=== PATIENT | female | born 1965 | race Caucasian/White ===

== ENCOUNTER 2017-03-05 03:11 | Inpatient (IN) | payer BC, SELFPAY ==
[2017-03-05] MEDS ORDERED: Acetaminophen 1,000 MG in Premix Bag 1 BAG IVPB SCH (05:00)
[2017-03-05 05:22] LABS: Oxyhemoglobin 96.7 % (94.0-97.0); Sodium 139 mmol/L (135-148)
[2017-03-05 05:24] LABS: Modified Allen's Test POSITIVE
[2017-03-05 05:41] LABS: Troponin I 0.011 ng/mL (< 0.028)
--- NOTE | 2017-03-05 06:14 | PDOC.EVN ---
Event Note - Event Note Event Note: [id number] 1. Pneumonia 2. Sepsis 3. Acute respiratory failure 4. S/P lap juvenal plan: see orders
[2017-03-05] MEDS ORDERED: Acetaminophen 325 MG TAB PO PRN (06:25)
[2017-03-05] MEDS ORDERED: Vancomycin HCl 1.5 GM in Sodium Chloride 0.9% 250 ML 300 ML IVPB SCH ×2 (06:30→07:45)
[2017-03-05 06:38] LABS: PTT 31.8 SEC (22.9-36.1); Prothrombin Time 15.5 SEC (12.0-14.7)
[2017-03-05 06:39] LABS: Lactic Acid - Sepsis 2.5 mmol/L (0.5-2.2)
[2017-03-05 06:46] LABS: ALT (SGPT) 103 U/L (8-55); AST (SGOT) 58 U/L (5-34); Alkaline Phosphatase 76 U/L (40-150); Anion Gap 13 mmol/L (10-20); BUN (Urea Nitrogen) 11 mg/dL (7.0-18.7); CK (CPK) 84 U/L (29-168); Calc. Creatinine Clearance 0 mL/min (70-130); Calcium 8.1 mg/dL (7.8-10.44); Carbon Dioxide 18 mmol/L (22-29); Chloride 111 mmol/L (98-107); Estimated GFR-MDRD 89; Globulin 2.7 g/dL (2.4-3.5); Protein, Total 6.1 g/dL (6.0-8.3)
[2017-03-05 06:50] LABS: #Basophils 0.1 thou/uL (0.0-0.2); #Lymphocytes 0.9 thou/uL (1.20-3.40); #Monocytes 0.6 thou/uL (0.11-0.59); #Neutrophils 10.8 thou/uL (1.40-6.50); %Basophils 0.4 % (0.0-1.0); %Lymphocytes 7.2 % (21.0-51.0); Hematocrit 41.2 % (36.0-47.0); Mean Platelet Volume 7.9 fL (7.4-10.4); Red Blood Cell (RBC) Count 4.13 mill/uL (4.20-5.40); White Blood Cell (WBC) Count 12.3 thou/uL (4.8-10.8)
[2017-03-05] MEDS: Sodium Chloride 0.9% 1,000 ML IV SCH ×2 (07:00→19:45)
[2017-03-05 08:30] LABS: Troponin I 0.015 ng/mL (< 0.028)
[2017-03-05] MEDS ORDERED: Cefepime 2 GM in Sodium Chloride 0.9% 100 ML IVPB SCH (09:00)
--- NOTE | 2017-03-05 09:07 | RAD ---
PORTABLE AP CHEST XRAY: DATE: 03/05/17. HISTORY: Dyspnea. Hypotensive. FINDINGS: There are parenchymal changes at each lung base probably related to atelectasis. This exam was also obtained in a shallow depth of inspiration. There is a questionable small pleural effusion, but this may be related to atelectasis and overlying soft tissue density. Cardiac silhouette and bronchovasc ular markings are accentuated by the shallow depth of inspiration. Osseous structures are intact. IMPRESSION: There is a shallow depth of inspiration limiting evaluation, but there is bibasilar atelectasis with a questionable tiny left pleural effusion. POS: OFF
[2017-03-05 09:08] LABS: LegU Control Bar Appear? YES (CONTROL BAR); LegionellaU Control Bkground? CLEAR/WHITE (CLR/WHITE); Strp pneuU Control Background? CLEAR/WHITE (CLR/WHITE); Strp pneumo Control Bar Appear YES (CONTROL BAR)
[2017-03-05] MEDS: Heparin 5,000 UNITS/ML VIAL SC SCH ×3 (09:52→21:26)
[2017-03-05] MEDS: Cefepime 2 GM, Syringe 2.5 ML in Sterile Water 10 ML SLOW IVP SCH ×2 (09:52→17:55)
--- NOTE | 2017-03-05 10:00 | HP ---
DATE OF ADMISSION: 03/05/2017 CHIEF COMPLAINT: Cough. HISTORY OF PRESENT ILLNESS: The patient is 51 years old female with past medical history of hypothyroidism, migraine disorder, posttraumatic stress disorder, now came here complaining of dyspnea. According to the patient, she had a laparoscopic cholecystectomy done in [place] as an outpatient and was discharged home. Last night around 8:00, upon arrival to the home, the patient started having abdominal pain. Abdominal pain was in the lower abdomen. The patient c/o cough associated with some sputum production. Had numerous episodes of vomiting. So, the patient went to outside ER and patient is transferred here. Patient was also found to be hypoxic, so the patient was placed on BiPAP in the outside ER. The patient complains of fatigue. Denies any chest pain. Denies any palpation. Denies any dizziness. Denies any headache. Denies any diarrhea, but complaints of dyspnea. PAST MEDICAL HISTORY: As per HPI. PAST SURGICAL HISTORY: Right shoulder surgery, back surgery, knee surgery. SOCIAL HISTORY: Denies smoking, denies alcohol, denies any drugs. FAMILY HISTORY: Positive for heart problems. MEDICATIONS: Reviewed. ALLERGIES: EGGS and SULFA. REVIEW OF SYSTEMS: Constitutional: Positive for fever and chills. Eyes: No vision problems. Ears: Denies any hearing loss. Neck: Denies any neck pain. Cardiovascular System: Denies any chest pain and denies any palpitations. Respiratory System: Positive for dyspnea. Positive for cough. Musculoskeletal : Denies any joint deformities. Cranial Nerve System: Denies syncope. Psychiatric System: Denies anxiety. Integumentary: Denies any rash. Gastrointestinal: Positive for abdominal pain. Positive for nausea, vomiting. Genitourinary: Denies any dysuria. All other review of systems are reviewed and are negative. PHYSICAL EXAMINATION: CONSTITUTIONAL/VITAL SIGNS: At the time of H and P performed, heart rate of 130s, blood pressure is 101/60, positive for fever in the outside ER, respiratory rate is 20. GENERAL: The patient appears tired. HEENT: Anterior nares patent. Face, positive for BiPAP mask. NECK: Supple, no JVD. CARDIOVASCULAR SYSTEM: S1, S2 present, tachycardic. No murmurs, no rubs, no gallops. RESPIRATORY SYSTEM: Diminished breath sounds. Positive for crackles. Positive for rhonchi. Positive for mild tachypnea. Positive for BiPAP. GASTROINTESTINAL: Abdominal surgical site appears clean, nontender to palpate, distended, no guarding, no organomegaly. CRANIAL NERVES SYSTEM: Awake, follows commands. Speech clear. PSYCHIATRIC: Mood appropriate at this time. LABORATORY DATA: Labs at the time of H and P performed that was done in the outside ER, BMP showed sodium 130, potassium 3.4, chloride 103, CO2 of 21, BUN 9 , creatinine 0.84. ABG showed pH of 7.36, pCO2 is 31, bicarbonate is 17.3. CT chest, abdomen, and pelvis done in the outside ER, no acute disease. Positive for laparoscopic cholecystectomy. CT chest, no evidence of PE. Positive for right lower lobe infiltrate and left lobe pneumonia. ASSESSMENT AND PLAN: The patient is a 51 years old female. 1. Sepsis secondary to pneumonia. Plan to start the patient on broad-spectrum antibiotics. Plan to admit the patient to ICU for close monitoring. We will monitor the patient closely. 2. Acute hypoxic respiratory failure. Continue BiPAP. We will monitor respiratory status. We will consult Pulmonary to evaluate the patient. 3. Pneumonia. Continue IV antibiotics. Plan to check Legionella, Streptococcus pneumonia, urinary antigen. Plan to check flu test also. We will follow the patient. 4. Status post laparoscopic cholecystectomy. We will go ahead and consult general surgery to evaluate the patient. We will monitor the patient closely. 5. Metabolic acidosis. We will monitor bicarbonate level closely. Plan to check serum lactate levels. 6. History of hypothyroidism. Continue home medications. 7. Pain, p.r.n. pain medications. The case was discussed in detail with the patient. SABRINA
[2017-03-05] MEDS: Vancomycin HCl 1.5 GM in Sodium Chloride 0.9% 250 ML 300 ML IVPB SCH ×2 (11:22→23:57)
[2017-03-05] MEDS: Morphine 4 MG/ML VIAL SLOW IVP PRN ×4 (11:22→19:48)
[2017-03-05 11:51] LABS: Troponin I 0.014 ng/mL (< 0.028)
[2017-03-05 13:20] LABS: Troponin I 0.012 ng/mL (< 0.028)
--- NOTE | 2017-03-05 14:02 | CON ---
DATE OF CONSULTATION: 03/05/2017 REQUESTING PHYSICIAN: Dr. Valle HISTORY OF PRESENT ILLNESS: This is a 51-year-old woman who is postoperative day #2, status post lap aroscopic cholecystectomy in [place]. The patient presented to a hospital in [place] last night co mplaining of shortness of breath associated with pleuritic chest pain. Following workup, the patient was transferred to [facility] in [place], [place]. At the time of my evaluation, the patient is awake and alert. She is on BiPAP to maintain adequate o xygenation. I have been asked to evaluate the patient to rule out any post-surgical complications. The patient d enies any nausea or vomiting. She reports right upper quadrant abdominal pain which she describes as spasm. She denies any fevers or chills. PAST MEDICAL HISTORY: Pertinent for hypothyroidism, post-traumatic stress disorder and chronic migra ine. Type 2 diabetes mellitus and reactive airway disease. SURGICAL HISTORY: Pertinent for laparoscopic cholecystectomy of which the patient is postoperative d ay #2. She is also status post right shoulder arthroplasty, she has had a right knee arthroplasty as well as back surgery. She does not recall what levels. SOCIAL HISTORY: She denies any cigarette smoking, ethanol or illicit drug abuse. PREHOSPITAL MEDICATIONS: Include acetaminophen with codeine 300/30 one p.o. q.6 hours p.r.n., amitri ptyline 10 mg p.o. daily, hydrochlorothiazide 12.5 mg p.o. daily, metformin 500 mg p.o. b.i.d., omepr azole 40 mg p.o. daily, Minipress 1 mg p.o. at bedtime, sertraline 100 mg p.o. daily, simvastatin 20 mg p.o. at bedtime, potassium chloride 20 mEq p.o. daily. She also takes Flovent Diskus 50 mcg inhal ation p.r.n. ALLERGIES: SULFA DRUGS. REVIEW OF SYSTEMS: Ten point review of systems essentially unremarkable except for as stated in past medical history and chief complaint. PHYSICAL EXAMINATION: GENERAL: This reveals a 51-year-old normally developed woman who is otherwise coherent and interacti ve and appears stated age. The patient is alert and oriented x3, appears to be in moderate acute dis tress secondary to right upper quadrant abdominal pain. VITAL SIGNS: Includes blood pressure 102/63, pulse 119, respiratory rate is 26, temperature is 97.7 degrees Fahrenheit, oxygen saturation 100% on BiPAP. HEENT: Reveals normocephalic and atraumatic. Pupils are equal, round, and reactive to light and acc ommodation. She has no sclerae icterus present. HEART: Reveals regular rate with sinus tachycardia. No murmurs or gallops auscultated. LUNGS: Reveals scattered rhonchi. Breathing is tachypneic, but unlabored. ABDOMEN: Soft and obese. She has moderate incisional tenderness to palpation with no gross rebound tenderness present. All surgical incisions remain intact, clean, and dry. NEUROLOGIC: Reveals no focal deficits present. PERTINENT LABORATORY DATA: Includes CBC with 12,300 white blood cells, hemoglobin 13.6, hematocrit i s 41.2, platelet count is 303,000. Metabolic profile: Sodium 138, potassium 3.6, chloride is 111, bicarbonate is 18, BUN 11, creatinine 0.70, glucose 118, lactic acid is elevated at 2.5. Total bilirubin is elevated at 2.0. AST and ALT are both elevated at 58 and 103 respectively. Alkaline phosphatase is normal at 76. I have personally reviewed the CT scan of the chest from [place] which is remarkable for bilateral pu lmonary consolidative opacifications, no evidence of pulmonary embolism. CT scan of the abdomen and pelvis obtained there as well reveals a small free fluid within the gallbl adder fossa as well as moderate sized free fluid above the liver. There is a small amount of free fl uid in the pelvis. There is residual small pneumoperitoneum. IMPRESSION: 1. Postoperative day #2, status post laparoscopic cholecystectomy. 2. Free intraperitoneal fluid, rule out biliary leak. 3. Acute pulmonary insufficiency, likely secondary to atelectases versus pneumonia. RECOMMENDATIONS: At this time includes a HIDA scan to rule out common bile duct stone versus bile le ak as the etiology of the transaminitis. We will consider Gastroenterology consultation if indicated by the HIDA scan for both diagnostic and therapeutic purposes. There is no acute surgical indication for this patient at this time; however, will continue to follow this patient's course with you and make further recommendations as necessary. Thank you again, Dr. Valle for allowing me the opportunity to participate in the care of this mariusz ent.
[2017-03-05] MEDS ORDERED: Fentanyl 100 MCG/2 ML VIAL ONE ×2 (14:20→17:50)
--- NOTE | 2017-03-05 14:44 | CON ---
CARDIOLOGY CONSULTATION NOTE DATE OF CONSULTATION: 03/05/2017 REASON FOR CONSULTATION: Shortness of breath and sinus tachycardia. HISTORY OF PRESENT ILLNESS: Ms. Blanco is a 51-year-old woman. The patient underwent a resection of her gallbladder in [place] on Thursday. Patient states in retrospect, she thinks she is having a l ittle bit of trouble breathing even right after the procedure. She said her breathing worsened and f inally she was brought to the Emergency Department where she is very short of breath and placed on Bi PAP. The patient has a history of hypothyroidism. No previous cardiac history. As mentioned, she had a l aparoscopic cholecystectomy in [place] as an outpatient. The patient was having abdominal pain las t night and then began having trouble breathing. She was found to be hypoxic here. Here, her oxygen levels are normal, now on BiPAP. PAST MEDICAL HISTORY: Negative for cardiac problems. PAST SURGICAL HISTORY: As outlined above. SOCIAL HISTORY: No smoking or alcohol. FAMILY HISTORY: Positive for heart disease. MEDICATIONS: Topiramate, pantoprazole, prazosin, hydrochlorothiazide, simvastatin and Imitrex p.r.n. ALLERGIES: SULFA. REVIEW OF SYSTEMS: Not really obtainable. Currently, she is on BiPAP. She can only speak in short sentences. Reading the review of systems from the initial note: Constitutional: Positive for fever and chills. Vision: No changes. Hearing: No changes. Pulmonary: No cough or wheezing. Positiv e shortness of breath. Cardiac: No chest pain. Gastrointestinal: Positive for abdominal pain. Sk in: No rashes. Neurologic: No unilateral weakness or numbness. Psychiatric: She has some history of anxiety. PHYSICAL EXAMINATION: GENERAL: A somewhat ill-appearing middle-aged woman in no distress. VITAL SIGNS: Blood pressure is 123/71, pulse is 128 and sinus tachycardia. EYES: Sclerae nonicteric. MOUTH: Mucous membranes are moist. NECK: Supple. No lymphadenopathy. LUNGS: Clear. No wheezing, rales or rhonchi. CARDIOVASCULAR: She is tachycardic. No murmur, rub or gallop. ABDOMEN: Obese and nontender to very light palpation, but she said she is tender to more deep palpat ion. EXTREMITIES: Warm and dry. No clubbing, cyanosis or edema. IMAGING DATA: EKG: Sinus tachycardia, otherwise normal. Echocardiogram showed normal left ventricu lar function and normal echocardiogram other than the tachycardia. PERTINENT LABORATORY DATA: Troponins peak 0.051. BNP does not appear to have been drawn. Lactic acid 3.5. ASSESSMENT: 1. Shortness of breath of unknown etiology. 2. Recent abdominal surgery. 3. Normal left ventricular function. PLAN: 1. We will go ahead and draw BNP in the morning. 2. Further evaluation is being done concerning her intraabdominal status. 3. Antibiotics being given. 4. No other recommendations from a cardiac standpoint. ADDENDUM: The patient did have a CT pulmonary angiogram done at the transferring hospital. There wa s no evidence of any pulmonary emboli.
[2017-03-05] MEDS ORDERED: Fentanyl 100 MCG/2 ML VIAL SLOW IVP PRN (15:30)
[2017-03-05] MEDS ORDERED: Succinylcholine Chloride 20 MG/ML 10 ml SYRINGE FS ONE (15:59)
[2017-03-05] MEDS ORDERED: Lidocaine 1% PF 5 ML VIAL ONE (15:59)
[2017-03-05] MEDS ORDERED: Propofol 200 MG/20 ML VIAL ONE (15:59)
--- NOTE | 2017-03-05 17:07 | NM ---
HIDA SCAN: Date: 03/05/17 Patient was given 5.5 mCi of technetium labeled mebrofenin IV. HISTORY: Post laparoscopic cholecystectomy. Assess for biliary leak. FINDINGS: Initial images show normal liver activity. Bile ducts begin to visualize by 15 minutes. Intestinal ac tivity is documented. Beginning at approximately 16 minutes, there is accumulation of activity in the region of the gallbla dder fossa, which intensifies with time. This is consistent with biliary leak at the gallbladder rhoda a. IMPRESSION: HIDA scan is positive for biliary leak with activity accumulating in the region of the gallbladder fo ssa. POS: [facility]
[2017-03-05] MEDS ORDERED: Iothalamate Meglumine 60% 50 ML VIAL FS ONE ×2 (17:32→18:37)
[2017-03-05] MEDS ORDERED: Midazolam HCl 2 mg/2 ml Vial ONE ×2 (17:50→18:54)
[2017-03-05] MEDS ORDERED: Indomethacin 50 MG SUPP ONE (18:39)
--- NOTE | 2017-03-05 19:40 | RAD ---
ERCP: History: Biliary leak. Comparison: HIDA scan, same day. FINDINGS: Only a single image of the examination was submitted. The intrahepatic and extrahepatic biliary syste m is visualized. No definite leak on this single view. IMPRESSION: No definite leak on this single images although limited as only a single image submitted and not the entirety of the examination. POS: [facility]
--- NOTE | 2017-03-05 20:38 | OP ---
PREOPERATIVE DIAGNOSIS: Bile leak. PROCEDURE: After informed consent was obtained, the patient was placed in the left lateral decubitus position and anesthesia was administered per the Anesthesia Department. Side-viewing endoscope was inserted into the esophagus under direct visualization with ease and passed to the second portion of the duodenum with ease. No mucosal abnormalities were noted. A tapered-tip cannula was inserted int o the common bile duct. Cholangiogram revealed no leak. No obvious filling defects. A sphincteroto my was performed and a 9 cm 10-Serbian stent was placed without difficulty. ASSESSMENT: 1. Bile leak. 2. Status post sphincterotomy and stent placement. RECOMMENDATIONS: 1. Repeat LFTs in a.m. 2. Removal of stent in 6-8 weeks.
[2017-03-05] MEDS ORDERED: Sedation Protocol FS SCH (20:45)
[2017-03-05] MEDS ORDERED: Lacri-Lube Opth Oint 3.5 GM TUBE EA EYE PRN (20:45)
[2017-03-05] MEDS ORDERED: DISCONTINUE PREVIOUS NARCOTIC PAIN MEDICATIONS AND BENZODIAZEPINES FS SCH (20:50)
[2017-03-05] MEDS ORDERED: Propofol 1,000 MG/100 ML VIAL IV PRN (20:50)
[2017-03-05] MEDS ORDERED: Fentanyl 20 MCG/ML 250 ML IVPB SCH (20:50)
[2017-03-05] MEDS ORDERED: Morphine 4 MG/ML VIAL SLOW IVP PRN (21:00)
[2017-03-05] MEDS: Lorazepam 2 MG/ML VIAL SLOW IVP PRN ×2 (21:13→23:47)
[2017-03-05] MEDS: metroNIDAZOLE 500 MG in Premix Bag 1 BAG IVPB SCH (21:13)
[2017-03-05] MEDS: Sodium Chloride 0.45% 1,000 ML IV SCH (21:30)
--- NOTE | 2017-03-05 23:22 | CON ---
DATE OF CONSULTATION: 03/05/2017 HISTORY OF PRESENT ILLNESS: The patient is a 51-year-old female who was in her normal stat e of health until she underwent a cholecystectomy in [place]. This was performed as an outpatient. She was discharged home. She soon thereafter had some abdominal pain, began to cough and then had some nausea and vomiting. She was sent to the ER and was hypoxic and placed on BiPAP. She reports i t hurts when she breathes. PAST SURGICAL HISTORY: Includes right shoulder surgery, back surgery, and knee surgery. PAST MEDICAL HISTORY: Includes hypothyroidism. MEDICATIONS: Include topiramate, pantoprazole, prazosin, hydrochlorothiazide, simvastatin, and Imitr ex. ALLERGIES: SULFA. SOCIAL HISTORY: She does not smoke or drink. FAMILY HISTORY: Negative for GI or liver disease. REVIEW OF SYSTEMS: Unobtainable as she is on BiPAP. PHYSICAL EXAMINATION: GENERAL: Shows an ill-appearing middle-aged woman, obese with some respiratory distress on BiPAP. VITAL SIGNS: Temperature is 97.8, pulse 119, blood pressure 107/62, respiratory rate 23. HEENT: Unremarkable. NECK: Supple. CHEST: Clear. CARDIOVASCULAR: Regular rate and rhythm. ABDOMEN: Diffusely tender without rebound or guarding. She has recent scars from her cholecystectom y. RECTAL: Deferred. EXTREMITIES: Normal. NEUROLOGIC: Nonfocal. LABORATORY DATA: Shows a white blood cell count of 12.3, hemoglobin 13.6. PT is 13.5 with an INR of 1.2. Chemistries are significant for a total bilirubin of 2.0, AST of 58, ALT of 103, lactic acid 2 .5, repeat was 3.5, CO2 is 18. HIDA scan was performed and showed changes consistent with a bile rita k. ASSESSMENT: 1. Bile leak. 2. Abnormal liver function tests. 3. Respiratory failure. RECOMMENDATIONS: ERCP with sphincterotomy and stent placement - risk and potential complications wer e discussed with the patient.
--- NOTE | 2017-03-06 00:15 | CON ---
DATE OF SERVICE: 03/05/2017 SERVICE: Pulmonary Medicine. REASON FOR CONSULTATION: Respiratory failure and ICU patient. HISTORY OF PRESENT ILLNESS: The patient is a 51-year-old white female with past medical history sign ificant for a recent cholecystectomy in [place]. This was in the outpatient setting. She was subs equently discharged home. At 8:00, she started having increasing abdominal discomfort and pain. She had cough and several episodes of vomiting. She presented to the outside Emergency Department where she was subsequently brought here. She was found to be a little bit hypoxemic. She was placed on B iPAP and tucked into the ICU. She denies any current fevers, diarrhea, chest discomfort, or signific ant sputum production. PAST MEDICAL HISTORY: 1. Hypothyroidism. 2. Migraine headache. 3. Posttraumatic stress disorder. PAST SURGICAL HISTORY: 1. Right shoulder surgery. 2. Back surgery. 3. Knee surgery. 4. Cholecystectomy. SOCIAL HISTORY: Negative for alcohol, tobacco, or illicit drug use. She denies any exposure to chem icals, dust asbestos, or tuberculosis. FAMILY HISTORY: Noncontributory. ALLERGIES: EGGS, SULFA. MEDICATIONS: List of her inpatient medications were reviewed. No updates were made at this time. REVIEW OF SYSTEMS: General, head, ears, eyes, nose, throat, cardiovascular, respiratory, GI, , mus culoskeletal, neurologic and skin is negative except as mentioned in the HPI. PHYSICAL EXAMINATION: VITAL SIGNS: Afebrile, pulse 128, blood pressure 111/62, respirations 33, saturation 99% on 27% FiO2 . GENERAL: Patient is awake. On BiPAP, she is tachypneic, but indicates she is breathing comfortable. She does not look toxic at this time. HEENT: Normocephalic, atraumatic. Sclerae are white, conjunctivae pink. Oral mucosa is moist witho ut lesions. LUNGS: Decent air entry. I do not appreciate a prolonged expiratory phase or wheezing. Rhonchi adalid ared with cough. HEART: Tachycardic. Regular. ABDOMEN: Distended. Bowel sounds are hypoactive. She is exquisitely tender in the right upper quad rant. She does have a little bit of rebound there, without guarding. MUSCULOSKELETAL: No cyanosis or clubbing. There is no pitting in the bilateral lower extremities. NEUROLOGIC: Grossly nonfocal. LABORATORY DATA: WBC 12.3, hemoglobin 13.6, platelets 303,000. INR 1.2. PH 7.36, pCO2 of 31, pO2 o f 138 on BiPAP at 12/5. Lactate is trending upward at 3.5. Cardiac enzymes are negative x3. AST an d ALT are 58 and 103. Basic metabolic profile, liver function studies are otherwise unremarkable. S trep and legionella urine antigens are negative. IMAGIN. Chest x-ray demonstrates bilateral atelectasis of the bibasilar region. Possible left-sided pleu ral effusion is evident. There seems to be some fluid in the fissure. Lung volumes were extraordina rily small. There is air in the colon, but no obvious free air is present. 2. Echocardiogram demonstrates 60% to 65% ejection fraction. Enlarged right ventricle. 3. Grade I diastolic dysfunction. 4. HIDA scan demonstrates a biliary leak with contrast accumulating in the region of the gallbladder fossa. ASSESSMENT: 1. Acute hypoxic respiratory failure secondary to atelectasis in the bilateral lower lobes. 2. Severe sepsis secondary to peritonitis from a biliary leak. 3. Recent cholecystectomy. PLAN: The patient is going down for ERCP and possible stent placement today. We will be putting on mechanical ventilation for this procedure. Empiric antibiotics directed at GI pathology will be cont inued. Otherwise, supportive care will be continued. Until this occurs, we will attempt to give her some BiPAP break as tolerated. CRITICAL CARE TIME: 30 minutes.
[2017-03-06] MEDS ORDERED: Sodium Chloride 0.9% 1,000 ML IV SCH (03:00)
[2017-03-06 04:01] LABS: Anion Gap 9 mmol/L (10-20); BUN (Urea Nitrogen) 21 mg/dL (7.0-18.7); Calc. Creatinine Clearance 141 mL/min (70-130); Calcium 7.6 mg/dL (7.8-10.44); Carbon Dioxide 20 mmol/L (22-29); Chloride 112 mmol/L (98-107); Estimated GFR-MDRD 80
[2017-03-06 04:03] LABS: ALT (SGPT) 52 U/L (8-55); AST (SGOT) 24 U/L (5-34); Alkaline Phosphatase 48 U/L (40-150); Bilirubin, Direct 0.9 mg/dL (0.1-0.3); Bilirubin, Total 1.3 mg/dL (0.2-1.2); Protein, Total 4.6 g/dL (6.0-8.3)
[2017-03-06 04:18] LABS: Band 38 % (5-11); Hematocrit 32.4 % (36.0-47.0); Mean Platelet Volume 7.6 fL (7.4-10.4); Neutrophil 54 % (42-75); White Blood Cell (WBC) Count 15.7 thou/uL (4.8-10.8)
[2017-03-06] MEDS ORDERED: Norepinephrine 8 MG/0.9% NS 250 ML ONE (05:11)
[2017-03-06] MEDS ORDERED: Norepinephrine 8 MG/250 ML BAG IVPB PRN (05:13)
[2017-03-06] MEDS: metroNIDAZOLE 500 MG in Premix Bag 1 BAG IVPB SCH ×3 (05:20→21:23)
--- NOTE | 2017-03-06 09:05 | RAD ---
PORTABLE UPRIGHT FRONTAL CHEST RADIOGRAPH: Date: 03/06/17 COMPARISON: 03/05/17. HISTORY: Recent laparoscopic cholecystectomy. FINDINGS: Nasogastric tube and endotracheal tube in proper position. No pneumothorax. There is increased densit y in both lung bases obscuring bilateral hemidiaphragms, left greater than right, suggesting a combin ation of pleural fluid and nonspecific air space disease/volume loss. IMPRESSION: Bibasilar pleural and parenchymal opacity, nonspecific, left greater than right. Endotracheal tube an d nasogastric tube in proper position. POS: OFF
[2017-03-06] MEDS: Sodium Chloride 0.45% 1,000 ML IV SCH ×3 (09:14→22:11)
[2017-03-06] MEDS: Heparin 5,000 UNITS/ML VIAL SC SCH ×3 (09:14→21:22)
[2017-03-06] MEDS: Cefepime 2 GM, Syringe 2.5 ML in Sterile Water 10 ML SLOW IVP SCH ×2 (09:14→19:14)
--- NOTE | 2017-03-06 11:45 | PRG ---
DATE OF SERVICE: 03/06/2017 SUBJECTIVE: Ms. Blanco is awake and sleepy this morning post-extubation. She is postoperative day # 3 status post laparoscopic cholecystectomy. She presented with respiratory difficulty. Workup was c onsistent with a bile leak as noted on the HIDA scan. The patient underwent ERCP with sphincterotomy and stent placement yesterday. Currently, she reports 6/10 abdominal pain. She denies any nausea. OBJECTIVE: VITAL SIGNS: Includes blood pressure 99/65, pulse is 120, respiratory rate is 28. Maximum temperatu re in the last 24 hours is 98.2 degrees Fahrenheit. HEENT: Reveals normocephalic and atraumatic. She has no scleral icterus present. HEART: Reveals regular rate with sinus tachycardia. No murmurs or gallops auscultated. CHEST: Lungs are clear to auscultation bilaterally. Breathing is regular and unlabored. ABDOMEN: Soft and obese with some mild tenderness to palpation which is incisional. She has no berta s rebound tenderness present. Liver and spleen are nonpalpable below costal margins. NEUROLOGIC: Reveals no focal deficits present. LABORATORY FINDINGS: Includes a CBC with 15,700 white blood cells, hemoglobin 10.4, hematocrit is 32 .4, platelet count is 236,000. Differential counts as follows, 54% segmented neutrophils, 38 bands, 6 lymphocytes, 1 monocyte and 1 eosinophil. Metabolic profile: Sodium is 137, potassium 3.9, chloride is 112, bicarbonate 20, BUN 21, creatinine 0.77, glucose is 97. Lactic acid is 2.9, down from 3.5 yesterday. AST and ALT are now normal at 24 and 52 respectively. Total bilirubin is improved to 1.3. IMPRESSION: 1. Postop day #2, status post endoscopic retrograde cholangiopancreatography with stent placement. 2. Postoperative day 3, status post laparoscopic cholecystectomy. 3. Acute pulmonary insufficiency, resolving. 4. Bile peritonitis, stable. PLAN: Continue with broad spectrum antibiotic therapy. There remains no surgical indication for thi s patient at this time.
[2017-03-06] MEDS: Vancomycin HCl 1.5 GM in Sodium Chloride 0.9% 250 ML 300 ML IVPB SCH (11:51)
[2017-03-06] MEDS: Acetaminophen 1,000 MG in Premix Bag 1 BAG IVPB SCH ×3 (11:51→23:07)
--- NOTE | 2017-03-06 13:31 | PRG ---
DATE OF SERVICE: 03/06/2017 SUBJECTIVE: The patient is doing better today. She seems to be breathing and having less abdominal pain. OBJECTIVE: VITAL SIGNS: Pulse is 118, respiratory rate is 34, blood pressure 137/81, temperature is 98.7. CHEST: Clear. CARDIOVASCULAR: Regular rate and rhythm. ABDOMEN: Soft. Diffusely tender without rebound or guarding. LABORATORY DATA: Shows a white blood cell count of 15.7, hemoglobin 10.4, hematocrit 32.4, MCV is 10 1.0. She has 38% bands. Chemistries significant for total bilirubin of 1.3. AST and ALT are normal . ASSESSMENT: 1. Bile leak -- improved. 2. Abnormal liver function tests -- improved. 3. Respiratory failure -- improved. RECOMMENDATIONS: 1. Continue antibiotics. 2. We will continue to follow.
[2017-03-06] MEDS: Pantoprazole 40 MG VIAL IVP SCH (14:32)
[2017-03-06] MEDS: traMADol HCl 50 MG TAB PO PRN ×3 (15:14→22:09)
--- NOTE | 2017-03-06 20:20 | PRG ---
DATE OF SERVICE: 03/06/2017 HISTORY OF PRESENT ILLNESS: This patient is status post ERCP, is comfortable, has been extubated tod ay in the morning, stent placement is satisfactory. Patient was just seen by Dr. Brown, who said taya t the patient can have ice chips and p.o. medications and will be monitored for signs of bowel activi ty and will be advanced on her diet. Patient otherwise is doing well. Pain control is good. She is awake, alert, and answering all questions appropriately. Pain control is appropriate. PHYSICAL EXAMINATION: VITAL SIGNS: Patient's blood pressure is 136/98, pulse is 128, temperature afebrile, and breathing c omfortably on room air. GENERAL: Patient is lying in bed, in mild distress because of abdominal pain. HEENT: Atraumatic, normocephalic. Pupils equally round, reactive to light. Extraocular movements i ntact. Mucous membranes moist. NECK: No JVD. CHEST: Some decreased air entry at the bases, otherwise good air entry at the upper lobes. HEART: S1, S2 normal, some tachycardia. ABDOMEN: Distended, bowel sounds are hypoactive, some tenderness. MUSCULOSKELETAL: Moves all 4 extremities. There is no pitting edema in the bilateral lower extremit ies. NEUROLOGIC: No cranial deficits. No sensorimotor deficits. LABORATORY DATA: WBC count is 15, hemoglobin is 10. Potassium was 3.9, creatinine 0.7. Lactic acid is 2.9. ASSESSMENT AND PLAN: 1. Acute hypoxic respiratory failure secondary to atelectasis. Patient has been extubated to follow sales and service representative plan. 2. Severe sepsis secondary to peritonitis from biliary leak status post endoscopic retrograde cholan giopancreatography and stent placement. Follow GI plan. 3. Recent cholecystectomy. 4. History of hypothyroidism, stable. 5. History of migraine headaches, stable. 6. Sequential compression devices for deep venous thrombosis prophylaxis. I will monitor the lactic acid and the labs in further caring for the patient.
--- NOTE | 2017-03-06 22:40 | PRG ---
DATE OF SERVICE: 03/06/2017 SERVICE: Pulmonary Medicine. INTERVAL HISTORY: The patient is doing great from a respiratory standpoint. She is actually breathi ng very comfortable on mechanical ventilation this morning. Her abdominal discomfort is much improve d. She is on a little bit of fentanyl, but outside of that, she should not requiring much in the way of pain medication. She is calm and collected on the ventilator. There are no overnight events. PHYSICAL EXAMINATION: VITAL SIGNS: Afebrile, pulse 118, blood pressure 145/94, respirations 23, saturation 98% on 21% FiO2 and a PEEP of 5. GENERAL: Patient is intubated. She is following all directions. She appears to be in minimal distr ess secondary to having a tube in her throat. HEENT: Normocephalic, atraumatic. Sclerae are white, conjunctivae pink. Oral and nasal mucosa is m oist without lesions. LUNGS: Excellent air entry. Rhonchi clear with cough. No prolonged expiratory phase is present. D ependent crackles are evident. HEART: Tachycardic. Regular. ABDOMEN: Soft. Tenderness to palpation throughout. There is a little bit of rebound still present in the right upper quadrant, but this is significantly improved. Bowel sounds are absent. GENITOURINARY: Rollins catheter in place. NEUROLOGIC: Grossly nonfocal. LABORATORY DATA: WBC 15.7, hemoglobin 10.4, platelets 236,000. Basic metabolic profile is unremarka ble. Total bilirubin 1.3 and downtrending, direct bilirubin 0.9. BNP is normal. Liver function evan dies are otherwise unremarkable. Lactate is trending downward to 2.9. IMAGING: Chest x-ray demonstrates bibasilar pleural and parenchymal opacities. This is likely repre sentative of atelectasis. Endotracheal tube and NG tube are in good position. ASSESSMENT: 1. Acute hypoxic respiratory failure secondary to atelectasis of the bilateral lower lobes. 2. Severe sepsis, secondary to peritonitis from a biliary leak. 3. Recent cholecystectomy. PLAN: The patient is doing absolutely fantastic on a spontaneous breathing trial. If she meets titus hernandez at the end of it, extubation will be considered. She will remain in the ICU for the next 24 antoni rs. If she tolerated extubation well, we will focus on mobilizing her. Pulmonary Critical Care will continue to follow while she remains in the ICU. CRITICAL CARE TIME: 30 minutes.
[2017-03-06] MEDS ORDERED: Vancomycin HCl 1.25 GM in Sodium Chloride 0.9% 250 ML 250 ML IVPB SCH (23:59)
[2017-03-07] MEDS: Pantoprazole 40 MG VIAL IVP SCH ×2 (02:55→14:24)
[2017-03-07 05:14] LABS: ALT (SGPT) 42 U/L (8-55); AST (SGOT) 19 U/L (5-34); Alkaline Phosphatase 71 U/L (40-150); Anion Gap 11 mmol/L (10-20); BUN (Urea Nitrogen) 28 mg/dL (7.0-18.7); Bilirubin, Total 1.2 mg/dL (0.2-1.2); Calc. Creatinine Clearance 95 mL/min (70-130); Calcium 8.7 mg/dL (7.8-10.44); Carbon Dioxide 19 mmol/L (22-29); Chloride 109 mmol/L (98-107); Estimated GFR-MDRD 50; Globulin 3.1 g/dL (2.4-3.5); Protein, Total 5.9 g/dL (6.0-8.3)
[2017-03-07] MEDS: Acetaminophen 1,000 MG in Premix Bag 1 BAG IVPB SCH ×2 (05:36→11:04)
[2017-03-07] MEDS: metroNIDAZOLE 500 MG in Premix Bag 1 BAG IVPB SCH ×3 (05:40→22:35)
[2017-03-07 05:41] LABS: Band 8 % (5-11); Hematocrit 34.8 % (36.0-47.0); Macrocytosis SLIGHT = 6-15 cells (100X) (0-5/hpf); Mean Platelet Volume 7.9 fL (7.4-10.4); Neutrophil 76 % (42-75); Red Blood Cell (RBC) Count 3.49 mill/uL (4.20-5.40); White Blood Cell (WBC) Count 17.3 thou/uL (4.8-10.8)
[2017-03-07] MEDS: traMADol HCl 50 MG TAB PO PRN (05:53)
[2017-03-07] MEDS: Cefepime 2 GM, Syringe 2.5 ML in Sterile Water 10 ML SLOW IVP SCH ×2 (07:31→22:35)
[2017-03-07] MEDS: Heparin 5,000 UNITS/ML VIAL SC SCH ×3 (07:52→22:35)
--- NOTE | 2017-03-07 11:28 | PRG ---
DATE OF SERVICE: 03/07/2017 SUBJECTIVE: Ms. Blanco is sitting up in the bedside chair. She says she feels better than she felt yesterday. She says each day she become a little bit better. She says her pain in her abdomen is flores lf of what it was couple of days ago. OBJECTIVE: VITAL SIGNS: She is afebrile, heart rate 110-117. She is in sinus rhythm, respiratory rate 16, temp erature 99, and blood pressure 121/87. LUNGS: Completely clear, oximetry is 97 to 99 on room air. HEART: Regular rhythm. S1 and S2 are normal. ABDOMEN: Soft. She had diffuse mild tenderness. EXTREMITIES: Without asymmetry. LABORATORY DATA: Sodium 135, potassium 3.5, chloride 109, bicarbonate 19, BUN 20, creatinine 1.16. White count 17.3, hemoglobin 11.4, platelets 263, bilirubin is 1.2. Lactate down to 1.3, albumin is 2.8. Intake and output is positive 2176. IMPRESSION: Status post bile leak with stent placed with bile peritonitis, on broad antimicrobial th erapy. Cultures have been reviewed and there are no blood cultures that are noted in the record. Zahra marshall appears medically stable. She is clinically improving. I believe, she can be moved to the surgica l floor. I have encouraged her to relay changes in her status to the nurses, but I do not feel that she needs critical care monitoring anymore. Her oxygen can be discontinued. Critical care time was 30 minutes.
[2017-03-07] MEDS: Calcium Carbonate 500 MG ChewTAB PO PRN (13:04)
[2017-03-07] MEDS: Sodium Chloride 0.45% 1,000 ML IV SCH (13:04)
--- NOTE | 2017-03-07 13:34 | PRG ---
DATE OF SERVICE: 03/07/2017 SUBJECTIVE: The patient is feeling better today. She is starting some liquids. She is having less pain. Breathing better. OBJECTIVE: VITAL SIGNS: Temperature 97.7, pulse 107, respiratory rate 21, blood pressure 114/73. CHEST: Clear. CARDIOVASCULAR: Regular rate and rhythm. ABDOMEN: Tender, but less so. LABORATORY DATA: Shows a white blood cell count 17.3, hemoglobin 11.4 and hematocrit 34.8. Chemistr y showed normalization of all the LFTs. ASSESSMENT: Bile leak -- status post sphincterotomy and stent placement, improving. RECOMMENDATIONS: 1. No new recommendations. 2. Stent removal in 6-8 weeks.
--- NOTE | 2017-03-07 13:35 | PRG ---
DATE OF SERVICE: 03/07/2017 SUBJECTIVE: This patient is doing much better today. Her pain control was good. She had bowel soun ds and passing gas and she had some bowel movements as well. The patient is sitting up in the chair and is tolerating diet as well. The patient denies any fever or chills. Complains of some pain, angely e mild abdominal pain. OBJECTIVE: VITAL SIGNS: Blood pressure is 114/73, afebrile, pulse is 107, breathing at 20 a minute. GENERAL: Patient is lying in bed and sitting up in chair, in mild distress because of pain. HEENT: Atraumatic, normocephalic. Pupils equally round, react to light. Extraocular movements inta ct. Mucous membranes moist. NECK: Supple. No JVD. CHEST: Some decreased breath sounds at the bases. HEART: S1, S2 normal, tachycardic. ABDOMEN: Mild tenderness. Some bowel sounds are present. MUSCULOSKELETAL: No cyanosis, clubbing or edema. NEUROLOGIC: Alert, awake, oriented. No cranial deficits. No sensorimotor deficits. LABORATORY DATA: WBC count has gone up to 17.3, hemoglobin is 11. Potassium is 3.5, creatinine is 1 .1. Lactic acid has come down to 1.3. Influenza A and B are negative. ASSESSMENT AND PLAN: 1. Acute hypoxic respiratory failure secondary to atelectasis. The patient has been extubated. The patient is doing well. 2. Severe sepsis secondary due to biliary peritonitis from biliary leak status post endoscopic retro grade cholangiopancreatography with stent placement. Follow GI plan. 3. Recent cholecystectomy, stable. 4. Hypothyroidism, stable. 5. History of migraine headaches, stable. Lactic acidosis has resolved. 6. Obesity with body mass index of 34.5. Patient has been counseled. I will work with the consulta nts on further caring for the patient.
[2017-03-07] MEDS: SUMAtriptan Succinate 50 MG TAB PO PRN (17:48)
[2017-03-07] MEDS: Ondansetron HCl/PF 4 MG/2 ML Vial IVP PRN (22:35)
[2017-03-08] MEDS: Pantoprazole 40 MG VIAL IVP SCH ×2 (02:26→15:47)
[2017-03-08] MEDS: Sodium Chloride 0.45% 1,000 ML IV SCH ×2 (04:58→06:27)
[2017-03-08 06:08] LABS: ALT (SGPT) 30 U/L (8-55); AST (SGOT) 15 U/L (5-34); Alkaline Phosphatase 75 U/L (40-150); Anion Gap 12 mmol/L (10-20); BUN (Urea Nitrogen) 27 mg/dL (7.0-18.7); Calc. Creatinine Clearance 98 mL/min (70-130); Carbon Dioxide 18 mmol/L (22-29); Chloride 108 mmol/L (98-107); Estimated GFR-MDRD 51; Globulin 3.2 g/dL (2.4-3.5)
[2017-03-08 06:09] LABS: Band 24 % (5-11); Hematocrit 35.6 % (36.0-47.0); Mean Platelet Volume 7.8 fL (7.4-10.4); Metamyelocyte 1 % (0-0); Neutrophil 64 % (42-75); Red Blood Cell (RBC) Count 3.57 mill/uL (4.20-5.40); White Blood Cell (WBC) Count 17.1 thou/uL (4.8-10.8)
[2017-03-08] MEDS: metroNIDAZOLE 500 MG in Premix Bag 1 BAG IVPB SCH ×3 (06:24→21:04)
[2017-03-08] MEDS: Ondansetron HCl/PF 4 MG/2 ML Vial IVP PRN (06:24)
[2017-03-08] MEDS ORDERED: Furosemide 40 MG/4 ML VIAL SLOW IVP SCH (08:45)
[2017-03-08] MEDS ORDERED: Potassium Chloride 20 MEQ TAB PO SCH (09:45)
--- NOTE | 2017-03-08 10:06 | PDOC.PN ---
- Subjective Encounter Start Date: 03/08/17 Encounter Start Time: 10:04 c/o sob pulse ox in the 80's on room air no fever has nausea and vomiting. felt better after she vomited no f/c - Objective MAR Reviewed: Yes Vital Signs & Weight: Vital Signs (12 hours) Temp Pulse Resp BP Pulse Ox 03/08/17 08:58 98.2 F 103 H 20 148/82 H 94 L 03/08/17 04:21 98.4 F 117 H 19 156/94 H 93 L 03/08/17 01:05 95 Weight Admit Weight 226 lb Weight 229 lb 4.492 oz Most Recent Monitor Data Heart Rate from ECG 109 NIBP 125/91 NIBP BP-Mean 106 Respiration from ECG 19 SpO2 93 I&O: 03/07/17 03/08/17 03/09/17 06:59 06:59 06:59 Intake Total 3481 712 1600 Output Total 5166 264 8403 Balance 2176 512 510 Result Diagrams: 03/08/17 05:27 03/08/17 05:27 Phys Exam - Physical Examination Constitutional: NAD HEENT: PERRLA Neck: no JVD decreased bs at bases, coarse bs Cardiovascular: no significant murmur, no rub tachycardia Gastrointestinal: soft mild tenderness, bs sluggish Musculoskeletal: pulses present Neurological: moves all 4 limbs Psychiatric: A&O x 3 Dx/Plan (1) Sepsis Code(s): A41.9 - SEPSIS, UNSPECIFIED ORGANISM Status: Acute (2) Acute hypoxemic respiratory failure Code(s): J96.01 - ACUTE RESPIRATORY FAILURE WITH HYPOXIA Status: Acute (3) Bile peritonitis Code(s): K65.3 - CHOLEPERITONITIS Status: Acute Comment: s/p ercp with stent (4) Obesity (BMI 30.0-34.9) Code(s): E66.9 - OBESITY, UNSPECIFIED Status: Acute (5) Hypothyroid Code(s): E03.9 - HYPOTHYROIDISM, UNSPECIFIED Status: Acute (6) Headache Code(s): R51 - HEADACHE Status: Acute - Plan * to ct with pe protocol to r/o pe. also r/o pna * cont abx * ct abd with contrast * gi input appreciated * stop iv fluids * f/u bnp, ef- 60%, lasix if needed * f/u abg
--- NOTE | 2017-03-08 10:11 | PRG ---
DATE OF SERVICE: 03/08/2017 SUBJECTIVE: The patient is feeling much worse today and she has had some large amount of vomiting. She is having some increased abdominal pain. She is having more shortness of breath. She has not flores d any bowel movements. OBJECTIVE: VITAL SIGNS: Shows temperature 98.2, pulse 103, respiratory rate 20, and blood pressure 148/82. CHEST: Clear. CARDIOVASCULAR: Regular rate and rhythm. ABDOMEN: Diffusely tender, somewhat tympanitic. Bowel sounds are active. LABORATORY DATA: Shows a white blood cell count of 17.1, hemoglobin 11.3, hematocrit 35.6. She has 24% bands. Chemistries show normal LFTs. ASSESSMENT: 1. Bile leak with endoscopic retrograde cholangio-pancreatography, sphincterotomy and stent placemen t. 2. Leukocytosis with left shift - this seems to be worsening. 3. Worsening shortness of breath. RECOMMENDATIONS: 1. Repeat CT abdomen and pelvis. 2. Clear liquids. 3. Milk of magnesia.
[2017-03-08] MEDS: Heparin 5,000 UNITS/ML VIAL SC SCH (10:22)
[2017-03-08] MEDS ORDERED: Enoxaparin Sodium 100 MG/ML SYRINGE SC SCH ×3 (11:00→21:00)
--- NOTE | 2017-03-08 11:23 | RAD ---
PORTABLE CHEST: HISTORY: Shortness of breath. COMPARISON: 03/06/17 exam. FINDINGS: Heart size is borderline. Bibasilar pleural and parenchymal lung changes are slightly improved as co mpared to the prior exam. There does appear to be possibly some increased blunting to the right cost ophrenic angle. Endotracheal and NG tubes have been removed. IMPRESSION: Slight improvement to the bibasilar pleural and parenchymal lung change. POS: [facility]
[2017-03-08] MEDS: Cefepime 2 GM, Syringe 2.5 ML in Sterile Water 10 ML SLOW IVP SCH ×2 (11:28→21:03)
[2017-03-08] MEDS: Calcium Carbonate 500 MG ChewTAB PO PRN ×2 (11:42→17:05)
[2017-03-08] MEDS: Enoxaparin Sodium 100 MG/ML SYRINGE SC SCH ×2 (11:43→21:03)
--- NOTE | 2017-03-08 13:14 | ULT ---
LEFT UPPER EXTREMITY VENOUS DUPLEX EXAM: HISTORY: Recent surgery in [place]. T now has some left arm swelling. FINDINGS: Real-time color Doppler evaluation of the left upper extremity was performed to include the internal jugular subclavian axillary, brachial, basilic, and cephalic veins as well as some forearm veins. Th is does show superficial thrombus within the basilic and cephalic veins, but no evidence of thrombus within the deep venous system. IMPRESSION: Superficial thrombus involving both the basilic and cephalic veins. POS: [facility]
[2017-03-08] MEDS ORDERED: Lidocaine 1% (PF) 30 ML VIAL ONE (13:19)
[2017-03-08] MEDS ORDERED: Iopamidol 370 76% 100 ML VIAL ONE (13:43)
--- NOTE | 2017-03-08 14:09 | OP ---
DATE OF SERVICE: 03/08/2017 PREOPERATIVE DIAGNOSES: Venous insufficiency, history of sepsis, bile duct leak. POSTOPERATIVE DIAGNOSES: Venous insufficiency, history of sepsis, bile duct leak. PROCEDURE: Central line right femoral. ANESTHESIA: Local. ESTIMATED BLOOD LOSS: Minimal. COMPLICATIONS: None. SPECIMEN: None. TECHNIQUE: With the patient's right groin was shaved, draped and draped in a sterile fashion. Local anesthetic infiltrated over the femoral vein. The femoral vein cannulated using Seldinger needle, w juana was passed under no tension. A amarilis was made at the wire entrance site. The dilator was used as a guide to dilate the femoral vein. Triple lumen catheter traced to its fullest extent. All ports flushed and nida blood without difficulty. Each was flushed with a saline solution. The central newton e sutured to the groin skin using closed silk and adaptor. Antibiotic disc was placed and a sterile dressing. The patient tolerated the procedure well.
--- NOTE | 2017-03-08 14:48 | PRG ---
DATE OF SERVICE: 03/08/2017 SUBJECTIVE: Mr. Blanco was complaining of nausea, mainly vomiting. She says she drank something and it immediately came back up. OBJECTIVE: VITAL SIGNS: She is afebrile, heart rate 103 this morning, respiratory rate 20 , oximetry is 94 on 2 liters, up to 98% this afternoon, blood pressure 148/82. LUNGS: Clear. HEART: Regular rhythm. ABDOMEN: Soft. LABORATORY DATA: White count 17.1, hemoglobin 11.3, platelets 292. Sodium 135 , potassium 3.2, chloride 108, bicarb 18, BUN 27, creatinine 1.13. IMPRESSION: 1. Status post stenting for bile duct leak. 2. Persistent vomiting on and off. PLAN: Continue supportive care. CT of her abdomen and pelvis was ordered today by Gastroenterology. The hospitalist has ordered a CT pulmonary angiogram on her. I suspect her hypoxemia is predominantly related to atelectasis. Today's chest radiograph is improved. SABRINA
--- NOTE | 2017-03-08 16:58 | CT ---
CT ANGIOGRAM CHEST PERFORMED WITH INTRAVENOUS CONTRAST ENHANCEMENT WITH 3D RECONSTRUCTIONS: History: Hypoxia, shortness of breath. Recent laparoscopic cholecystectomy. FINDINGS: The lungs show small bilateral pleural effusions with right lower lobe atelectasis or infiltrate. The re are similar changes in the left lung base. No significant mediastinal or hilar adenopathy. The thoracic aorta is normal in caliber. There is good pulmonary artery opacification, there is no CT evidence for pulmonary embolus. Liver parenchyma shows an indeterminate hypodensity within the left lobe. CT numbers suggest that it is probably a cyst. There is a small hiatal hernia noted. IMPRESSION: 1. Pronounced bibasilar lung changes probably related to atelectasis versus less likely infiltrate. 2. No CT evidence for pulmonary embolus. POS: [facility]
--- NOTE | 2017-03-08 17:06 | CT ---
CT OF ABDOMEN PERFORMED WITH INTRAVENOUS CONTRAST ENHANCEMENT: History: Patient with worsening abdominal pain after laparoscopic cholecystectomy Anamika and subsequ ent ERCP and stent placement related to leak repair. FINDINGS: There are fairly pronounced bibasilar lung changes probably on the basis of atelectasis versus left l ikely infiltrate. The liver shows a hypodense lesion which appears to represent a cyst and measures approximately 2 cm. A small amount of fluid along the liver capsule. The gallbladder has been removed. There is a small amount of fluid and some air seen in the region of the gallbladder fossa. This could just be post-ope rative. The stent itself appears to be in good position. The tip of the stent is in the duodenum and the proximal end is just above the expected location of the cystic duct. The spleen is normal in size . The pancreas shows no evidence for pancreatitis. Right and left adrenal glands and right and left kidneys are normal in appearance. A pelvic CT was not performed but on this examination there is moderate small bowel dilatation noted. This could represent a ileus versus small bowel obstruction. I do not see a definite transition zone other than the very terminal ileum is not dilated, but bowel loops in the pelvis are not imaged. IMPRESSION: 1. Fairly pronounced bibasilar lung changes which appear to be related to atelectatic change. 2. Post op cholecystectomy change. A biliary stent appears to be in good position. There is a small a mount of air and fluid in the region of the gallbladder fossa which could be entirely post-operative in nature. 3. Small amount of subcapsular fluid along the liver margin. 4. Dilated small bowel. I am not certain whether this is related to ileus or small bowel obstruction. Clinical correlation recommended. 5. The tip of a right femoral line is noted with the tip at the level of the common femoral vein. POS: [facility]
[2017-03-08] MEDS: Promethazine HCl 25 MG in Sodium Chloride 0.9% 100 ML IVPB PRN (22:34)
[2017-03-09] MEDS: Pantoprazole 40 MG VIAL IVP SCH ×2 (03:00→16:19)
[2017-03-09] MEDS: metroNIDAZOLE 500 MG in Premix Bag 1 BAG IVPB SCH (06:06)
[2017-03-09 06:29] LABS: #Eosinphils 0.2 thou/uL (0.0-0.7); #Lymphocytes 1.7 thou/uL (1.20-3.40); #Monocytes 1.4 thou/uL (0.11-0.59); #Neutrophils 8.3 thou/uL (1.40-6.50); %Basophils 0.2 % (0.0-1.0); %Eosinophils 1.6 % (0.0-10.0); %Lymphocytes 14.5 % (21.0-51.0); Hematocrit 31.4 % (36.0-47.0); Mean Platelet Volume 7.7 fL (7.4-10.4); Red Blood Cell (RBC) Count 3.19 mill/uL (4.20-5.40); White Blood Cell (WBC) Count 11.6 thou/uL (4.8-10.8)
[2017-03-09 06:43] LABS: Anion Gap 10 mmol/L (10-20); BUN (Urea Nitrogen) 25 mg/dL (7.0-18.7); BUN/Creatinine Ratio 22.52; Calc. Creatinine Clearance 101 mL/min (70-130); Calcium 8.8 mg/dL (7.8-10.44); Carbon Dioxide 21 mmol/L (22-29); Chloride 108 mmol/L (98-107); Estimated GFR-MDRD 52; Phosphorus 2.2 mg/dL (2.3-4.7)
[2017-03-09] MEDS: traMADol HCl 50 MG TAB PO PRN ×3 (09:39→22:55)
[2017-03-09] MEDS: Cefepime 2 GM, Syringe 2.5 ML in Sterile Water 10 ML SLOW IVP SCH (09:42)
[2017-03-09] MEDS: Enoxaparin Sodium 100 MG/ML SYRINGE SC SCH ×2 (09:42→22:54)
--- NOTE | 2017-03-09 12:51 | PRG ---
DATE OF SERVICE: 03/09/2017 SUBJECTIVE: The patient is feeling a whole lot better. She is coughing up some thick phlegm. She i s less nauseated, having no vomiting. She is on clear liquids and tolerating them well, is not quite ready to advance her diet. She is having some runny stools that were initially black, but now have turned green. OBJECTIVE: VITAL SIGNS: Temperature 98.0, pulse of 100, respiratory rate 18, blood pressure 135/77. CHEST: Clear. CARDIOVASCULAR: Regular rate and rhythm. ABDOMEN: Soft, less tender than before without rebound or organomegaly. EXTREMITIES: Show swelling in the left upper extremity. LABORATORY DATA: Shows a potassium of 3.2, CO2 21, BUN 25, creatinine 1.11, white blood cell count o f 11.6, hemoglobin 10.1, hematocrit 31.4. The patient underwent a chest and thorax CTA that showed no pulmonary embolism. There was quite a bi t of atelectasis. CT abdomen shows fairly pronounced bibasilar lung changes which appear to be atele ctatic, postoperative cholecystectomy change. The biliary stent was in good position. There is a sm all amount of fluid in the region of the gallbladder fossa and also some air, a small amount of subca psular fluid along the liver margin, dilated small bowel which could be related to ileus or small-bow el obstruction. ASSESSMENT: 1. Bile leak - status post stent with a stent in good position and liver function tests normalized. 2. Bile peritonitis - resolving. 3. Shortness of breath, cough - atelectasis versus pneumonia. 4. Ileus. RECOMMENDATIONS: 1. Correct electrolytes. 2. Continue with clear liquid diet once the patient is ready to advance, I would advance her to full liquids. 3. Stool for C. diff. 4. I will follow.
[2017-03-09] MEDS ORDERED: Potassium Phosphate 15 MMOL in Sodium Chloride 0.9% 250 ML 250 ML IVPB SCH (13:15)
[2017-03-09] MEDS: Calcium Carbonate 500 MG ChewTAB PO PRN (13:56)
--- NOTE | 2017-03-09 14:10 | PRG ---
DATE OF SERVICE: 03/09/2017 SERVICE: Pulmonary Medicine. INTERVAL HISTORY: The patient is doing fine from a respiratory standpoint. She was able to sit up o n the side of the bed today. She has been weaned down 1 liter nasal cannula. She has also been walk ing around the room a little bit. This is causing some abdominal discomfort whenever she takes a le p breath. Her cough is getting a little bit better and is producing some yellow sputum. She sees th is as a positive thing. Her abdominal discomfort is improving a little bit. PHYSICAL EXAMINATION: VITAL SIGNS: Afebrile, pulse 94, blood pressure 143/82, respirations 16, saturation 95% on half lite r nasal cannula. GENERAL: The patient is awake and alert, in no apparent distress. LUNGS: Excellent air entry. There is no prolonged expiratory phase, wheezing, rhonchi or crackles. HEART: Normal rate, regular. ABDOMEN: Soft. Tenderness to palpation throughout. Bowel sounds are hypoactive. GENITOURINARY: No Rollins. NEUROLOGIC: Grossly nonfocal. LABORATORY DATA: WBC is 11.6, hemoglobin 10.1, platelets 305,000. Potassium 3.2. Creatinine 1.11. Basic metabolic profile is otherwise unremarkable. Phosphorus is 2.2. Magnesium 2.1. IMAGING: CTA of the chest demonstrates no acute pulmonary embolism is identified. There is a very s mall infiltrate versus atelectasis of the majority of the right lower lobe with a very small rim of p leural effusions surrounding it. I do favor atelectasis here. ASSESSMENT: 1. Acute hypoxic respiratory failure secondary to atelectasis in the bilateral lower lobes. 2. Severe sepsis secondary to peritonitis from the biliary leak following cholecystectomy. PLAN: The patient is doing absolutely wonderful. Potassium and phosphorus will be replaced today. Pulmonary Critical Care will continue to follow up for the time being. I have given her proper instr uctions on the incentive spirometer and asked her to get up and move as much as possible. We will we an oxygen away as tolerated.
[2017-03-09] MEDS: metroNIDAZOLE 500 MG TAB PO SCH ×2 (15:25→22:55)
--- NOTE | 2017-03-09 16:39 | PRG ---
DATE OF SERVICE: 03/09/2017 SUBJECTIVE: Ms. Blanco is awake and alert. At bedside is elderly mother. The patient reports good pain control. She is tolerating oral intake. Denies any nausea or vomiting. She is having diarrhea . She denies any fevers or chills. OBJECTIVE: VITAL SIGNS: Today includes blood pressure 143/82, pulse is 94, respiratory rate 16, maximum tempera ture in the last 24 hours is 98.2 degrees Fahrenheit, and oxygen saturation is 95% on 2 liters by nisha al cannula oxygen. HEENT: Reveals normocephalic and atraumatic. Pupils are equal, round, reactive to light and accommo dation. She has no sclerae icterus present. HEART: Reveals regular rate and rhythm, no murmurs or gallops auscultated. LUNGS: Clear to auscultation bilaterally. Breathing is regular and unlabored. ABDOMEN: Soft and moderately obese. She has mild tenderness to palpation with no gross rebound tend erness present. NEUROLOGIC: Patient has no neuro deficits present. LABORATORY DATA: Pertinent laboratory findings today include CBC with 11,600 white blood cells, hemo globin 10.1, hematocrit is 31.4, and platelet count is 305,000. Metabolic profile: Sodium 136, potassium 3.2, chloride is 108, bicarbonate 21, BUN 25, creatinine is 1.11, and glucose is 108. IMPRESSION: 1. Resolved bile leak. 2. Resolving bile peritonitis. 3. Acute hypokalemia. 4. Resolving acute pulmonary insufficiency. PLAN: 1. Saline lock. 2. Increase diet as tolerated. 3. Increase activity as tolerated. There is no acute surgical indication for this patient at this t [facility].
--- NOTE | 2017-03-09 17:20 | PDOC.PN ---
- Subjective Encounter Start Date: 03/09/17 Encounter Start Time: 17:19 Patient seen and examined. No new complaints. No overnight events c/o diarrhea kelsey cld - Objective MAR Reviewed: Yes Vital Signs & Weight: Vital Signs (12 hours) Temp Pulse Resp BP Pulse Ox 03/09/17 11:35 98.2 F 94 16 143/82 H 95 03/09/17 08:30 98.0 F 100 18 135/77 98 03/09/17 08:00 98.2 F 94 16 98 Weight Admit Weight 226 lb Weight 229 lb 4.492 oz Most Recent Monitor Data Heart Rate from ECG 109 NIBP 125/91 NIBP BP-Mean 106 Respiration from ECG 19 SpO2 93 I&O: 03/08/17 03/09/17 03/10/17 06:59 06:59 06:59 Intake Total 712 2600 775 Output Total 200 1990 800 Balance 512 610 -25 Result Diagrams: 03/09/17 06:04 03/09/17 06:04 Phys Exam - Physical Examination Constitutional: NAD HEENT: PERRLA Neck: no JVD Respiratory: no rales Cardiovascular: no significant murmur Gastrointestinal: non-tender lt arm swollen Neurological: moves all 4 limbs Psychiatric: A&O x 3 Dx/Plan (1) Sepsis Code(s): A41.9 - SEPSIS, UNSPECIFIED ORGANISM Status: Acute (2) Acute hypoxemic respiratory failure Code(s): J96.01 - ACUTE RESPIRATORY FAILURE WITH HYPOXIA Status: Acute (3) Bile peritonitis Code(s): K65.3 - CHOLEPERITONITIS Status: Acute Comment: s/p ercp with stent (4) Obesity (BMI 30.0-34.9) Code(s): E66.9 - OBESITY, UNSPECIFIED Status: Acute (5) Hypothyroid Code(s): E03.9 - HYPOTHYROIDISM, UNSPECIFIED Status: Acute (6) Headache Code(s): R51 - HEADACHE Status: Acute (7) DVT (deep venous thrombosis) Code(s): I82.409 - ACUTE EMBOLISM AND THOMBOS UNSP DEEP VN UNSP LOWER EXTREMITY Status: Acute (8) Diarrhea Code(s): R19.7 - DIARRHEA, UNSPECIFIED Status: Acute (9) Hypokalemia Code(s): E87.6 - HYPOKALEMIA Status: Acute (10) Hypophosphatemia Code(s): E83.39 - OTHER DISORDERS OF PHOSPHORUS METABOLISM Status: Acute - Plan * replace lytes * f/u kub * f/u stool cul * ambulate * change to po anticoag in am
[2017-03-09] MEDS: Cipro 250 MG TAB PO SCH (22:55)
[2017-03-10] MEDS: Pantoprazole 40 MG VIAL IVP SCH ×2 (03:58→15:28)
[2017-03-10 06:38] LABS: #Eosinphils 0.2 thou/uL (0.0-0.7); #Lymphocytes 1.9 thou/uL (1.20-3.40); #Monocytes 1.8 thou/uL (0.11-0.59); #Neutrophils 9.4 thou/uL (1.40-6.50); %Basophils 0.3 % (0.0-1.0); %Eosinophils 1.6 % (0.0-10.0); %Lymphocytes 14.4 % (21.0-51.0); %Monocytes 13.4 % (0.0-10.0); Hematocrit 30.4 % (36.0-47.0); Mean Platelet Volume 7.1 fL (7.4-10.4); Red Blood Cell (RBC) Count 3.07 mill/uL (4.20-5.40); White Blood Cell (WBC) Count 13.4 thou/uL (4.8-10.8)
[2017-03-10 07:00] LABS: Anion Gap 9 mmol/L (10-20); BUN (Urea Nitrogen) 17 mg/dL (7.0-18.7); BUN/Creatinine Ratio 20.24; Calc. Creatinine Clearance 133 mL/min (70-130); Calcium 8.1 mg/dL (7.8-10.44); Carbon Dioxide 23 mmol/L (22-29); Chloride 107 mmol/L (98-107); Estimated GFR-MDRD 72; Phosphorus 3.1 mg/dL (2.3-4.7)
--- NOTE | 2017-03-10 08:55 | RAD ---
ABDOMEN ONE VIEW: History: Ileus. FINDINGS/IMPRESSION: There are post op changes of cholecystectomy and a biliary stent in place. A right groin vascular cat heter is present with tip in the projection of the right sacral ala. An IUD is present. There is cont rast in the colon and rectum. Air is noted in loops of small bowel, some of which appear dilated. The re are mild degenerative changes in the spine. POS: OFF
[2017-03-10] MEDS: Cipro 250 MG TAB PO SCH ×2 (09:04→20:29)
[2017-03-10] MEDS: traMADol HCl 50 MG TAB PO PRN ×2 (09:04→20:28)
[2017-03-10] MEDS: Saccharomyces boulardii 250 MG CAP PO SCH (09:05)
[2017-03-10] MEDS: metroNIDAZOLE 500 MG TAB PO SCH ×3 (09:05→20:30)
[2017-03-10] MEDS: Enoxaparin Sodium 100 MG/ML SYRINGE SC SCH ×2 (09:05→21:20)
--- NOTE | 2017-03-10 12:51 | PRG ---
DATE OF SERVICE: 03/10/2017 SUBJECTIVE: The patient is feeling better today. She is still having a cough with productive of phl egm. She is feeling full after liquids, but passing some gas. She has had no nausea, vomiting since her diarrhea episode yesterday. She has had no bowel movements. OBJECTIVE: VITAL SIGNS: Temperature 98.3, pulse 95, respiratory rate 18, and blood pressure 127/83. CHEST: Clear. CARDIOVASCULAR: Regular rate and rhythm. ABDOMEN: Diffusely tender, but not particularly tympanitic. Bowel sounds are hypoactive. LABORATORY DATA: Shows a white blood cell count 13.4, hemoglobin 9.8, hematocrit 30.4. Chemistry sh ows potassium of 3.3. Abdominal x-ray was performed this morning and showed some dilated small-bowel loops, shows a biliary stent to be in good position. Reviewing CT is seemed to be dilated fluid steve led loops of bowel consistent with an ileus. ASSESSMENT: 1. Bile leak - status post sphincterotomy and stent placement. 2. Ileus. 3. Respiratory failure - resolved. RECOMMENDATIONS: 1. Continue present management. The patient to go slow on diet if she develops any nausea, vomiting , we may need to hold her diet further and wait for her ileus to resolve. 2. Repeat abdominal films tomorrow.
[2017-03-10 14:45] LABS: Anion Gap 8 mmol/L (10-20); BUN (Urea Nitrogen) 14 mg/dL (7.0-18.7); Calc. Creatinine Clearance 135 mL/min (70-130); Calcium 8.4 mg/dL (7.8-10.44); Carbon Dioxide 24 mmol/L (22-29); Chloride 105 mmol/L (98-107); Estimated GFR-MDRD 73
--- NOTE | 2017-03-10 16:25 | PDOC.PN ---
- Subjective Encounter Start Date: 03/10/17 Encounter Start Time: 16:23 diarrhea resolved no n/v no f/c - Objective MAR Reviewed: Yes Vital Signs & Weight: Vital Signs (12 hours) Temp Pulse Resp BP Pulse Ox 03/10/17 12:00 98.2 F 105 H 20 142/89 H 95 03/10/17 08:00 98.3 F 95 18 127/83 95 03/10/17 04:46 98.1 F 100 16 145/86 H 97 Weight Admit Weight 226 lb Weight 230 lb 2.601 oz Most Recent Monitor Data Heart Rate from ECG 109 NIBP 125/91 NIBP BP-Mean 106 Respiration from ECG 19 SpO2 93 I&O: 03/09/17 03/10/17 03/11/17 06:59 06:59 06:59 Intake Total 2600 1225 700 Output Total 1990 800 Balance 610 425 700 Result Diagrams: 03/10/17 06:15 03/10/17 14:17 Phys Exam - Physical Examination Constitutional: NAD HEENT: PERRLA Neck: no JVD Respiratory: no wheezing Cardiovascular: no significant murmur Gastrointestinal: soft bs sluggish Musculoskeletal: pulses present Neurological: moves all 4 limbs Psychiatric: A&O x 3 Dx/Plan (1) Sepsis Code(s): A41.9 - SEPSIS, UNSPECIFIED ORGANISM Status: Acute (2) Acute hypoxemic respiratory failure Code(s): J96.01 - ACUTE RESPIRATORY FAILURE WITH HYPOXIA Status: Acute (3) Bile peritonitis Code(s): K65.3 - CHOLEPERITONITIS Status: Acute Comment: s/p ercp with stent (4) Obesity (BMI 30.0-34.9) Code(s): E66.9 - OBESITY, UNSPECIFIED Status: Acute (5) Hypothyroid Code(s): E03.9 - HYPOTHYROIDISM, UNSPECIFIED Status: Acute (6) Headache Code(s): R51 - HEADACHE Status: Acute (7) DVT (deep venous thrombosis) Code(s): I82.409 - ACUTE EMBOLISM AND THOMBOS UNSP DEEP VN UNSP LOWER EXTREMITY Status: Acute (8) Diarrhea Code(s): R19.7 - DIARRHEA, UNSPECIFIED Status: Acute (9) Hypokalemia Code(s): E87.6 - HYPOKALEMIA Status: Acute (10) Hypophosphatemia Code(s): E83.39 - OTHER DISORDERS OF PHOSPHORUS METABOLISM Status: Acute - Plan * advance diet * ambulate * monitor clinically
[2017-03-10] MEDS: Acetaminophen 500 MG TAB PO PRN ×2 (16:57→21:59)
[2017-03-11] MEDS: traMADol HCl 50 MG TAB PO PRN ×2 (02:31→08:33)
[2017-03-11] MEDS: Pantoprazole 40 MG VIAL IVP SCH ×3 (02:31→17:04)
[2017-03-11] MEDS: Acetaminophen 500 MG TAB PO PRN (02:40)
--- NOTE | 2017-03-11 08:20 | RAD ---
ABDOMEN 2 VIEWS: HISTORY: A 51-year-old female with followup ileus. COMPARISON: 03/25/17. FINDINGS: There are persistent dilated loops of small bowel with air fluid levels, particularly in the left kassie e of the abdomen. Previously noted oral contrast remains primarily in the right colon. Indwelling b iliary stent. Postop cholecystectomy. Right-sided femoral catheter. IUD in place. IMPRESSION: Stable primarily left-sided dilated small bowel and air fluid levels unchanged from prior study. Oth er findings remain stable. POS: [facility]
[2017-03-11] MEDS: metroNIDAZOLE 500 MG TAB PO SCH ×2 (08:36→16:03)
[2017-03-11] MEDS: Saccharomyces boulardii 250 MG CAP PO SCH (08:36)
[2017-03-11] MEDS: Enoxaparin Sodium 100 MG/ML SYRINGE SC SCH (08:36)
[2017-03-11] MEDS: Cipro 250 MG TAB PO SCH (08:36)
[2017-03-11] MEDS ORDERED: Potassium Chloride 20 MEQ/100 ML PREMIX BAG IVPB SCH (11:30)
[2017-03-11] MEDS: Calcium Carbonate 500 MG ChewTAB PO PRN (11:49)
[2017-03-11] MEDS: HYDROcodone/Acetaminophen 7.5/325 mg Tablet PO PRN (14:01)
--- NOTE | 2017-03-11 14:07 | PRG ---
DATE OF SERVICE: 03/11/2017 SUBJECTIVE: The patient is complaining of lower abdominal cramps, which she is attributing to her me nstrual period. She reports her period has not been quite so bad in the past, but it is very bad now . She has had some small amount of bowel movements. She does continue to pass gas. She is belching somewhat. She has had no nausea, vomiting. OBJECTIVE: VITAL SIGNS: Temperature 98.4, pulse 97, respiratory rate 18, blood pressure 136/85. CHEST: Clear. CARDIOVASCULAR: Regular rate and rhythm. ABDOMEN: Diffusely tender, particularly in the lower abdomen. EXTREMITIES: Normal. LABORATORY DATA: Shows a magnesium of 1.6. IMAGING: Abdominal films showed persistent left-sided dilated small bowel and some air fluid levels from similar to previous. ASSESSMENT: 1. Possible small-bowel obstruction. 2. Bile leak, status post stent placement and subsequent resolution. 3. Menstrual period. 4. Respiratory failure - resolved. RECOMMENDATIONS: 1. Surgical opinion. 2. Gastrografin small bowel series. 3. N.p.o. 4. May need nasogastric tube.
--- NOTE | 2017-03-11 15:27 | PDOC.PN ---
- Subjective Encounter Start Date: 03/11/17 Encounter Start Time: 15:25 Patient seen and examined. No new complaints. No overnight events no n/v some lower abd cramping had few bm - Objective MAR Reviewed: Yes Vital Signs & Weight: Vital Signs (12 hours) Temp Pulse Resp BP Pulse Ox 03/11/17 12:00 98.4 F 97 18 136/85 94 L 03/11/17 08:00 98.1 F 86 16 140/83 94 L 03/11/17 04:46 96 03/11/17 04:21 98.2 F 92 16 132/81 97 Weight Admit Weight 226 lb Weight 230 lb 6.129 oz Most Recent Monitor Data Heart Rate from ECG 109 NIBP 125/91 NIBP BP-Mean 106 Respiration from ECG 19 SpO2 93 I&O: 03/10/17 03/11/17 03/12/17 06:59 06:59 06:59 Intake Total 1225 2400 Output Total 800 Balance 425 2400 Result Diagrams: 03/10/17 06:15 03/10/17 14:17 Phys Exam - Physical Examination Constitutional: NAD HEENT: PERRLA Neck: no JVD Respiratory: no wheezing Cardiovascular: RRR Gastrointestinal: soft bs sluggish Psychiatric: A&O x 3 Dx/Plan (1) Sepsis Code(s): A41.9 - SEPSIS, UNSPECIFIED ORGANISM Status: Acute (2) Acute hypoxemic respiratory failure Code(s): J96.01 - ACUTE RESPIRATORY FAILURE WITH HYPOXIA Status: Acute (3) Bile peritonitis Code(s): K65.3 - CHOLEPERITONITIS Status: Acute Comment: s/p ercp with stent (4) Obesity (BMI 30.0-34.9) Code(s): E66.9 - OBESITY, UNSPECIFIED Status: Acute (5) Hypothyroid Code(s): E03.9 - HYPOTHYROIDISM, UNSPECIFIED Status: Acute (6) Headache Code(s): R51 - HEADACHE Status: Acute (7) DVT (deep venous thrombosis) Code(s): I82.409 - ACUTE EMBOLISM AND THOMBOS UNSP DEEP VN UNSP LOWER EXTREMITY Status: Acute (8) Diarrhea Code(s): R19.7 - DIARRHEA, UNSPECIFIED Status: Acute (9) Hypokalemia Code(s): E87.6 - HYPOKALEMIA Status: Acute (10) Hypophosphatemia Code(s): E83.39 - OTHER DISORDERS OF PHOSPHORUS METABOLISM Status: Acute (11) SBO (small bowel obstruction) Code(s): K56.609 - UNSP INTESTNL OBST, UNSP TO PARTIAL VERSUS COMPLETE OBST Status: Acute - Plan * cont current mx * f/u small bowel series * f/u gi plan
[2017-03-11] MEDS ORDERED: Magnesium 2 GM/NS 0.9% 50 ML 2 GM in Premix Bag 1 BAG IVPB SCH (17:45)
[2017-03-11] MEDS ORDERED: Potassium Chloride 40 MEQ in Sodium Chloride 0.9% 500 ML IVPB SCH (18:00)
[2017-03-11] MEDS: Morphine 4 MG/ML VIAL SLOW IVP PRN ×2 (18:14→21:45)
[2017-03-11] MEDS: Lactated Ringer's 1,000 ML IV SCH ×3 (18:15→21:40)
--- NOTE | 2017-03-11 19:17 | PRG ---
DATE OF SERVICE: 03/11/2017 SERVICE: Pulmonary Medicine. INTERVAL HISTORY: The patient is doing great from a respiratory standpoint. She denies any shortnes s of breath or chest discomfort. She is a little tearful this morning. She is on her period. She i s having some abdominal cramping. She typically takes [place] at home for this. She is also having he adache. She only has appeared once every 3-4 months because she has an ICD in place. Because of her antibiotics here, she is having a yeast infection and requesting medications for that. PHYSICAL EXAMINATION: VITAL SIGNS: Afebrile, pulse 97, blood pressure 136/85, respirations 18, saturation 94% on 1 liter n teri cannula. GENERAL: The patient is awake, alert, in no apparent distress. LUNGS: Excellent air entry. No prolonged expiratory phase. HEART: Normal rate, regular. ABDOMEN: Soft, nontender, nondistended. Bowel sounds positive. MUSCULOSKELETAL: No cyanosis or clubbing. No pitting in the bilateral lower extremities. NEUROLOGIC: Grossly nonfocal. LABORATORY DATA: WBC 13.4, hemoglobin 9.8, platelets 355,000. INR 1.2. Basic metabolic profile is essentially unremarkable except for potassium of 3.3. Magnesium is 1.6. C. diff antigen and toxin w as negative. Influenza swab was negative. IMAGING: KUB demonstrates left-sided dilated small bowel with air fluid levels are unchanged from pr ior study. Otherwise, there is some stable findings. ASSESSMENT: 1. Acute hypoxic respiratory failure secondary to atelectasis in the bilateral lower lobes. 2. Severe sepsis secondary to peritonitis from biliary leak following cholecystectomy. 3. Yeast infection. PLAN: Replace the potassium and magnesium. I will give the patient a dose of Diflucan which can be repeated in 48 hours if necessary. [place] 5/325 will be provided for her minimal discomfort. She vanessa l continue making efforts and moving around. Hopefully, she will have a more positive outlook.
[2017-03-11] MEDS ORDERED: Ondansetron HCl/PF 4 MG/2 ML Vial IVP PRN (20:28)
[2017-03-11] MEDS: metroNIDAZOLE 500 MG in Premix Bag 1 BAG IVPB SCH (21:41)
[2017-03-11] MEDS: Promethazine HCl 25 MG in Sodium Chloride 0.9% 100 ML IVPB PRN (22:51)
--- NOTE | 2017-03-11 23:41 | RAD ---
EXAM: GASTROGRAFIN SMALL BOWEL 03/11/17 HISTORY: Evaluation for small bowel obstruction. COMPARISON: None. FINDINGS: The initial foster parent abdomen radiograph demonstrates a right common femoral central venous catheter. Th ere is also evidence of surgical clips compatible with a previous cholecystectomy as well as a stent in the common bile duct. Gastrografin was administered. On the 30 minute and one hour images, there appears to be an abrupt ca liber change in the overall diameter of the small bowel at the level of the jejunum. Proximal to this caliber change, there are some distended loops of small bowel. This study was carried out and at the three hour images, there is evidence of passage of contrast. On the five hour images, there is zana tional passage of contrast. On the eight hour images, there is evidence of the gastrografin in the di stal small bowel loops and opacifying the colon. Note, the patient states that she had a bowel movement. A small amount of contrast in the rectum is n oted. Nasogastric tube is also identified in the left upper quadrant, presumed to be in the stomach. IMPRESSION: Abrupt caliber change presumed to be in a jejunal loop. Though there is obstruction, contrast does pa st through this area suggesting a partial obstructive process. POS: [facility]
[2017-03-12] MEDS: Pantoprazole 40 MG VIAL IVP SCH ×2 (02:11→16:04)
[2017-03-12] MEDS: Morphine 4 MG/ML VIAL SLOW IVP PRN ×4 (03:15→23:58)
[2017-03-12] MEDS: metroNIDAZOLE 500 MG in Premix Bag 1 BAG IVPB SCH (06:09)
[2017-03-12 06:56] LABS: Prothrombin Time 17.1 SEC (12.0-14.7)
[2017-03-12 06:57] LABS: PTT 42.6 SEC (22.9-36.1)
[2017-03-12 07:01] LABS: Anion Gap 10 mmol/L (10-20); BUN (Urea Nitrogen) 12 mg/dL (7.0-18.7); BUN/Creatinine Ratio 15.19; Calc. Creatinine Clearance 142 mL/min (70-130); Calcium 8.2 mg/dL (7.8-10.44); Carbon Dioxide 25 mmol/L (22-29); Chloride 108 mmol/L (98-107); Estimated GFR-MDRD 77; Phosphorus 3.1 mg/dL (2.3-4.7)
[2017-03-12 07:44] LABS: Band 1 % (5-11); Mean Platelet Volume 7.4 fL (7.4-10.4); Neutrophil 80 % (42-75); Red Blood Cell (RBC) Count 3.54 mill/uL (4.20-5.40); White Blood Cell (WBC) Count 23.3 thou/uL (4.8-10.8)
[2017-03-12] MEDS: Promethazine HCl 25 MG in Sodium Chloride 0.9% 100 ML IVPB PRN ×2 (08:28→21:39)
[2017-03-12] MEDS: Saccharomyces boulardii 250 MG CAP PO SCH (08:38)
[2017-03-12] MEDS: Fluconazole 100 MG TAB PO SCH (08:38)
[2017-03-12] MEDS ORDERED: Potassium Chloride 40 MEQ in Premix Bag 1 BAG IVPB SCH (10:30)
--- NOTE | 2017-03-12 11:33 | PRG ---
DATE OF SERVICE: 03/12/2017 SUBJECTIVE: Ms. Blanco is awake and alert. I saw her yesterday following a bout of emesis and compl aint of abdominal pain. Small bowel follow through which was initiated yesterday and completed revea led a partial small-bowel obstruction, although the contrast made it all the way into the colon. The patient has had multiple loose bowel movements overnight. She did have some emesis yesterday; however, has had no emesis or nausea since midnight. This morning she reports bowel movements and flatus. She reports significant improvement with regard s to her abdominal pain. She ambulates with minimum difficulty. I removed the NG tube this morning following confirmation of placement and an NG tube which returned only 100 mL of bile-tinged effluent over 12 hours. OBJECTIVE: VITAL SIGNS: This morning includes blood pressure 131/85, pulse 111, respiratory rate is 17. Maximu m temperature in the last 24 hours is 99.1 degrees Fahrenheit. Oxygen saturation 94% on room air. HEENT: Reveals normocephalic and atraumatic. Pupils are equal, round, and reactive to light and acc ommodation. HEART: Reveals regular rate with sinus tachycardia. No murmurs or gallops auscultated. CHEST: Clear to auscultation bilaterally. Her breathing is regular and unlabored. ABDOMEN: Soft and nondistended. She has mild tenderness to palpation clearly with no peritoneal sig ns present. Liver and spleen remain nonpalpable below costal margins. NEUROLOGIC: Reveals no focal deficits present. LABORATORY DATA: Today includes a CBC with 23,300 white blood cells, hemoglobin 11.4, hematocrit 35. 0, platelet count is 545,000. Metabolic profile: Sodium 140, potassium 3.4, chloride is 108, bicarbonate 25, BUN is 12, creatinine 0.79, glucose is 102. IMPRESSION: 1. Resolved acute partial small-bowel obstruction. 2. Resolving bile peritonitis. 3. Acute hypokalemia. PLAN: 1. Correct abnormal electrolytes. 2. Increase physical activity as tolerated. 3. Initiate clear liquid diet and advance this if the patient tolerates this over the course of the next 24 hours. There remains no acute surgical indication for this patient at this time. I did advise the patient t hat her partial small-bowel obstruction is likely secondary to peritoneal irritation from a bile leak . Surgical intervention will only be entertained for intractability and failure to resolve with conserv ative management. This information was given to the patient in the presence of her elderly mother at bedside. They both indicated understanding of information given. I answered their questions.
[2017-03-12 11:48] LABS: Anion Gap 8 mmol/L (10-20); BUN (Urea Nitrogen) 12 mg/dL (7.0-18.7); Calc. Creatinine Clearance 149 mL/min (70-130); Calcium 7.5 mg/dL (7.8-10.44); Carbon Dioxide 24 mmol/L (22-29); Chloride 109 mmol/L (98-107); Estimated GFR-MDRD 82
--- NOTE | 2017-03-12 12:13 | PDOC.PN ---
- Subjective Encounter Start Date: 03/12/17 Encounter Start Time: 12:12 c/o dizziness and palpitations on walking c/o of lower abd cramping pain no f/v passing some gas and stools tolerating cld - Objective Vital Signs & Weight: Vital Signs (12 hours) Temp Pulse Resp BP Pulse Ox 03/12/17 07:40 98.4 F 116 H 20 137/81 94 L 03/12/17 05:21 98.3 F 111 H 17 131/85 100 03/12/17 04:24 96 03/12/17 00:44 99.1 F 108 H 16 123/68 97 Weight Admit Weight 226 lb Weight 230 lb Most Recent Monitor Data Heart Rate from ECG 109 NIBP 125/91 NIBP BP-Mean 106 Respiration from ECG 19 SpO2 93 I&O: 03/11/17 03/12/17 03/13/17 06:59 06:59 06:59 Intake Total 2400 1850 Output Total 600 Balance 2400 1250 Result Diagrams: 03/12/17 06:00 03/12/17 11:20 Phys Exam - Physical Examination Constitutional: NAD HEENT: PERRLA Neck: no JVD Respiratory: no wheezing Cardiovascular: no significant murmur Gastrointestinal: soft bs sluggish Musculoskeletal: pulses present edema of lt arm resolved Neurological: moves all 4 limbs Psychiatric: A&O x 3 Dx/Plan (1) Sepsis Code(s): A41.9 - SEPSIS, UNSPECIFIED ORGANISM Status: Acute (2) Acute hypoxemic respiratory failure Code(s): J96.01 - ACUTE RESPIRATORY FAILURE WITH HYPOXIA Status: Resolved (3) Bile peritonitis Code(s): K65.3 - CHOLEPERITONITIS Status: Acute Comment: s/p ercp with stent (4) Obesity (BMI 30.0-34.9) Code(s): E66.9 - OBESITY, UNSPECIFIED Status: Acute (5) Hypothyroid Code(s): E03.9 - HYPOTHYROIDISM, UNSPECIFIED Status: Acute (6) Headache Code(s): R51 - HEADACHE Status: Acute (7) DVT (deep venous thrombosis) Code(s): I82.409 - ACUTE EMBOLISM AND THOMBOS UNSP DEEP VN UNSP LOWER EXTREMITY Status: Acute Comment: on lovenox (8) Diarrhea Code(s): R19.7 - DIARRHEA, UNSPECIFIED Status: Acute (9) Hypokalemia Code(s): E87.6 - HYPOKALEMIA Status: Acute Comment: replace (10) Hypophosphatemia Code(s): E83.39 - OTHER DISORDERS OF PHOSPHORUS METABOLISM Status: Acute (11) SBO (small bowel obstruction) Code(s): K56.609 - UNSP INTESTNL OBST, UNSP TO PARTIAL VERSUS COMPLETE OBST Status: Acute (12) Elevated WBC count Code(s): D72.829 - ELEVATED WHITE BLOOD CELL COUNT, UNSPECIFIED Status: Acute - Plan * continue current mx * consult dr musa for elevated wbc * surg and gi input appreciated
[2017-03-12] MEDS: Potassium Chloride 40 MEQ in Sodium Chloride 0.9% 500 ML IVPB SCH ×2 (12:32→17:50)
--- NOTE | 2017-03-12 13:12 | PRG ---
DATE OF SERVICE: 03/12/2017 SERVICE: Pulmonary Medicine. INTERVAL HISTORY: The patient is doing fine from a respiratory standpoint. She denies any current f betty, chills, nausea, vomiting or chest discomfort. She did have nausea with vomiting last night. NG tube was placed, but they really did not put out anything overnight. She is continuing that outpu t from her GI tract. Otherwise, there has been no interval change to her condition. PHYSICAL EXAMINATION: VITAL SIGNS: Afebrile, pulse 116, blood pressure 137/81, respirations 20, saturation 94% on room air . GENERAL: The patient is awake, alert, in no apparent distress. LUNGS: Decent air entry. There is no prolonged expiratory phase or wheezing. HEART: Normal rate, regular. ABDOMEN: Soft. Mildly tender to palpation without rebound or guarding. MUSCULOSKELETAL: No cyanosis or clubbing. No pitting in the bilateral lower extremities. NEUROLOGIC: Grossly nonfocal. LABORATORY DATA: WBC 23.3, hemoglobin 11.4, platelets 545,000. Band count is only 1%. Potassium 3. 4. Basic metabolic profile, mag and phosphorus is otherwise unremarkable. Magnesium was previously 1.6 yesterday. ASSESSMENT: 1. Acute hypoxic respiratory failure secondary to atelectasis of the bilateral lower lobes. 2. Severe sepsis secondary to peritonitis from biliary leak following cholecystectomy. 3. Vaginal yeast infection. PLAN: The patient has no ongoing requirements for inpatient Pulmonary or Critical Care opinion at th is time. She will continue using her incentive spirometer. Her white count is going up, but the pat ient is feeling much improved today compared to yesterday. If she develops any additional signs of s epsis, stauffer culture, and possible repeat imaging should be considered. I will continue to follow inte rmittently during this hospital stay, but if she has an acute change, please give me a phone call.
--- NOTE | 2017-03-12 13:25 | PRG ---
DATE OF SERVICE: 03/12/2017 SUBJECTIVE: The patient's abdominal pain is quite significantly improved. She has had multiple anya l movements. She is still on clear liquids. Presently does not want to hold lot more, but she will go ahead and take some Ensure. OBJECTIVE: VITAL SIGNS: Temperature 98.4, pulse 160, respiratory rate 20, blood pressure 137/81. CHEST: Clear. CARDIOVASCULAR: Regular rate and rhythm. ABDOMEN: Benign. LABORATORY DATA: Shows a white blood cell count 23.3, hemoglobin 11.4, hematocrit 35.0. Chemistries show potassium 3.1, glucose 132, calcium 7.5. Small bowel Gastrografin study was performed and show ed a partial small-bowel obstruction. The patient was seen by Dr. Brown and felt no other interventi on needed to be performed. ASSESSMENT: 1. Bile leak. 2. Partial small-bowel obstruction -- improving. 3. Leukocytosis. RECOMMENDATIONS: 1. Continue present management. 2. Advance diet. 3. Ensure. 4. We will sign off.
--- NOTE | 2017-03-12 13:39 | CON ---
DATE OF CONSULTATION: 03/12/2017 REASON FOR CONSULTATION: Biliary leak following laparoscopic cholecystectomy with kate salinas es. HISTORY OF PRESENT ILLNESS: A 51-year-old who has history of hypothyroidism, migraine and had known cholelithiasis with recurrent episodes of gallbladder pain and eventually underwent an elective lapar oscopic cholecystectomy. This was I believe listed at the end of February. She then developed progr essively worsening right upper quadrant abdominal pain which was severe and this was associated with cough and tachypnea. She was seen at an outside ER and transferred over to [place] [facility] on a BiPAP mas k associated with hypoxemia. Initial findings included heart rate 130 and BP 100/60. She had a temp erature of 104 and respiratory rate 20. She appeared in some distress. Heart exam was normal. Lung exam showed diminished breath sounds with inspiratory crackles. Abdomen was not tender to palpation , but felt distended. White cell count is 15.7, hemoglobin 10, platelets 236 and 38% bands. The patient had nuclear medici ne hepatobiliary scan which showed biliary leak and she underwent placement of a biliary stent by Dr. Morris with sphincterotomy. She is feeling improvement in the abdominal pain, although she still has moderate pain. No headaches, no visual symptoms, sore throat, no more vomiting. NG tube has been re moved. Mild dyspnea, no chest pain, no genitourinary symptoms, no joint symptoms. No neurological s ymptoms. PAST MEDICAL HISTORY: Migraine disorder, PTSD, hypothyroidism. PAST SURGICAL HISTORY: Includes laparoscopic cholecystectomy, laminectomy, knee surgery. SOCIAL HISTORY: Never a smoker. No drug use. No alcoholic beverage use. FAMILY HISTORY: Noncontributory. ALLERGIES: EGGS and SULFA DRUGS. CURRENT MEDICATIONS: Sumatriptan, tramadol, promethazine, Flagyl, and ciprofloxacin. PHYSICAL EXAMINATION: VITAL SIGNS: T-max 99.1. Recently pulse 116, respiratory rate 20, O2 saturation 94%, BP 130/80. GENERAL: Sitting by the bedside, awake, alert, oriented, mildly tachypneic. SKIN: With multiple tattoos. No drains. She has a peripheral IV access. No Rollins catheter. No ly mphadenopathy. HEENT: Ocular movements are conjugate. Oral cavity normal. NECK: Supple. LUNGS: With diminished breath sounds particularly on the right side where there is likely pleural ef fusion up to third of the right hemithorax. No crackles or wheezing. HEART: S1, S2, regular rate. No S3 or S4. ABDOMEN: Distended and moderately tender in the right side. GENITOURINARY: No genital abnormalities. EXTREMITIES: No joint inflammatory activity. Trace edema in lower extremities. Pulses are 1+ in do rsalis pedis. Moves extremities equally. NEUROLOGIC: Cognitive function appears to be intact. LABORATORY DATA: White cell count was down to 11.6 and is up to 23,000, hemoglobin 11.4, MCV 98, alexa telets are up to 545, and 80% neutrophils, 1% bands. Band percentage was up to 38 originally. Sodiu m 138, creatinine 0.75 and Legionella pneumoniae antigen and strep pneumo antigen negative. Microbio logy with negative C. diff and influenza A and B tests. Imaging studies include a small bowel x-ray from 03/11/2017 with partial jejunal loop obstruction apparent. Chest CT angio from 03/08/2017 showe d pronounced bibasilar lung changes related to atelectasis versus infiltrate, no pulmonary embolism. Abdomen CT fairly pronounced bibasilar lung changes, postop cholecystectomy change, stent in good po sition, small amount of air and fluid in the region of the gallbladder fossa, dilated small bowel, moore bcapsular fluid along the liver margin. ASSESSMENT: Elective cholecystectomy with biliary leak and inflammatory changes with fluid collectio n in gallbladder area and now worsening neutrophilia. DISCUSSION: Differential diagnosis includes formation of an abscess in the gallbladder fossa area, p erihepatic location versus alternate inflammatory process or area of inflammatory change without actu al abscess formation or loculation. At this point, we will switch her to Zosyn, discontinue current meds, may need repeat CT abdomen and pelvis with contrast depending on progress.
[2017-03-12] MEDS: Piperacillin/Tazobactam 3.375 GM in Sodium Chloride 0.9% 100 ML IVPB SCH ×2 (17:50→23:58)
[2017-03-12] MEDS: Enoxaparin Sodium 100 MG/ML SYRINGE SC SCH (20:02)
[2017-03-13] MEDS: Pantoprazole 40 MG VIAL IVP SCH ×3 (02:44→15:25)
[2017-03-13 03:33] LABS: Bilirubin Negative (Negative); Blood, Urine Negative (Negative); Glucose, Urine (Dipstick) Negative (Negative); Ketone, Urine Trace mg/dL (Negative); Nitrite Negative (Negative); Protein, Urine (Dipstick) 30 mg/dL (Neg-Trace); Urobilinogen 0.2 mg/dL (0.2-1.0)
[2017-03-13 03:36] LABS: Bacteria/HPF None Seen HPF (None Seen); Hyaline Casts/LPF 7-10 HYALINE CAST LPF (0-3 Hyaline)
[2017-03-13] MEDS: Morphine 4 MG/ML VIAL SLOW IVP PRN ×3 (03:52→12:15)
[2017-03-13 03:57] LABS: Renal Epithelial None Seen HPF (0-3); Transitional Epithelial NONE SEEN HPF (0-3); Yeast-All Forms None Seen HPF (None Seen)
[2017-03-13] MEDS: Piperacillin/Tazobactam 3.375 GM in Sodium Chloride 0.9% 100 ML IVPB SCH ×3 (05:56→22:24)
[2017-03-13 07:17] LABS: #Eosinphils 0.2 thou/uL (0.0-0.7); #Lymphocytes 2.2 thou/uL (1.20-3.40); #Neutrophils 12.2 thou/uL (1.40-6.50); %Eosinophils 1.4 % (0.0-10.0); %Lymphocytes 13.8 % (21.0-51.0); %Monocytes 6.2 % (0.0-10.0); Mean Platelet Volume 7.1 fL (7.4-10.4); Red Blood Cell (RBC) Count 3.31 mill/uL (4.20-5.40); White Blood Cell (WBC) Count 15.6 thou/uL (4.8-10.8)
[2017-03-13] MEDS: Enoxaparin Sodium 100 MG/ML SYRINGE SC SCH (08:19)
[2017-03-13] MEDS: Saccharomyces boulardii 250 MG CAP PO SCH (08:20)
[2017-03-13] MEDS: Fluconazole 100 MG TAB PO SCH (08:20)
[2017-03-13 08:23] LABS: Band 10 % (5-11); Macrocytosis SLIGHT = 6-15 cells (100X) (0-5/hpf); Myelocyte 1 % (0-0); Neutrophil 64 % (42-75); Polychromasia SLIGHT = 2-3 cells (100X) (0-2/hpf); Toxic Granulation SLIGHT
--- NOTE | 2017-03-13 10:06 | PDOC.PN ---
- Subjective Encounter Start Date: 03/13/17 Encounter Start Time: 10:30 Subjective: Patient feeling better. Still with abd pain with deep breaths and especiall -: with ambulation, but improving. No fever. Taking oral diet well. - Objective MAR Reviewed: Yes Vital Signs & Weight: Vital Signs (12 hours) Temp Pulse Resp BP Pulse Ox 03/13/17 08:22 98.5 F 103 H 16 03/13/17 08:00 98.5 F 103 H 16 124/81 94 L 03/13/17 04:35 98.5 F 102 H 18 141/84 H 94 L 03/13/17 00:00 98.1 F 108 H 18 146/93 H 98 Weight Admit Weight 226 lb Weight 230 lb Most Recent Monitor Data Heart Rate from ECG 109 NIBP 125/91 NIBP BP-Mean 106 Respiration from ECG 19 SpO2 93 I&O: 03/12/17 03/13/17 03/14/17 06:59 06:59 06:59 Intake Total 1850 720 Output Total 600 Balance 1250 720 Result Diagrams: 03/13/17 06:00 03/12/17 11:20 Phys Exam - Physical Examination Constitutional: NAD HEENT: moist MMs Respiratory: no wheezing, no rhonchi occ rales right base Cardiovascular: RRR, no significant murmur Gastrointestinal: soft, positive bowel sounds mild TTP diffuse, no guarding, mild distension Neurological: non-focal, moves all 4 limbs Psychiatric: normal affect, A&O x 3 Dx/Plan (1) Bile peritonitis Code(s): K65.3 - CHOLEPERITONITIS Status: Acute Comment: s/p ercp with stent (2) Elevated WBC count Code(s): D72.829 - ELEVATED WHITE BLOOD CELL COUNT, UNSPECIFIED Status: Acute Comment: improved with switch to Zosyn on 03/12 (3) Sepsis Code(s): A41.9 - SEPSIS, UNSPECIFIED ORGANISM Status: Acute (4) Acute hypoxemic respiratory failure Code(s): J96.01 - ACUTE RESPIRATORY FAILURE WITH HYPOXIA Status: Resolved (5) SBO (small bowel obstruction) Code(s): K56.609 - UNSP INTESTNL OBST, UNSP TO PARTIAL VERSUS COMPLETE OBST Status: Acute (6) Diarrhea Code(s): R19.7 - DIARRHEA, UNSPECIFIED Status: Acute (7) Hypokalemia Code(s): E87.6 - HYPOKALEMIA Status: Acute Comment: replace (8) Hypophosphatemia Code(s): E83.39 - OTHER DISORDERS OF PHOSPHORUS METABOLISM Status: Acute (9) Hypothyroid Code(s): E03.9 - HYPOTHYROIDISM, UNSPECIFIED Status: Acute (10) Obesity (BMI 30.0-34.9) Code(s): E66.9 - OBESITY, UNSPECIFIED Status: Acute (11) Superficial venous thrombosis of left arm Code(s): I82.612 - ACUTE EMBOLISM AND THOMBOS OF SUPERFIC VEINS OF L UP EXTREM Status: Acute Comment: not a deep vein, can go home on ASA only. - Plan cont current plan of care, continue antibiotics, PT/OT, out of bed/ambulate, DVT proph w/lovenox Likely ok to d/c tomorrow per surgery. New abx improving leukocytosis. Will -: discuss abx plan with Dr. Proctor. * . - Discharge Day Encounter end time: 10:50
--- NOTE | 2017-03-13 10:51 | PRG ---
DATE OF SERVICE: 03/13/2017 SUBJECTIVE: Ms. Blanco is awake and alert. She reports adequate pain control. She reports tolerating general diet and having normal bowel and urinary function. OBJECTIVE: VITAL SIGNS: Today includes blood pressure 141/84, pulse 102, respiratory rate is 18, temperature 98 .5 degrees Fahrenheit and oxygen saturation is 94% on room air. HEENT: Reveals normocephalic and atraumatic. Pupils are equal, round and reactive to light and acco mmodation. HEART: Reveals regular rate and rhythm. No murmurs, rubs or gallops auscultated. LUNGS: Clear to auscultation bilaterally. Breathing is regular and unlabored. ABDOMEN: Soft and nondistended with minimum tenderness to palpation. She clearly has no gross rebou nd tenderness present. PERTINENT LABORATORY FINDINGS: Today includes CBC with a decreasing white blood cell count of 15,600 , hemoglobin and hematocrit are stable at 10.5 and 33.0 respectively. Platelet count 473,000. Metab olic profile was not obtained today. However, magnesium today is low at 1.4. I suspect that the pot assium will also be low as well. Therefore, we will complete the remainder of the electrolyte replac ements. IMPRESSION: 1. Status post laparoscopic cholecystectomy. 2. Resolving bile peritonitis. 3. Acute hypomagnesemia. PLAN: 1. Correct abnormal electrolytes. 2. The patient will be discharged home tomorrow if she continues to tolerate general diet, having on going bowel movements without any exacerbation of abdominal pain. She is to follow up with her prima ry surgeon in 2 weeks.
[2017-03-13 11:32] VITALS: BMI 34.9
[2017-03-13] MEDS ORDERED: ISOVUE-370 76%-LOCM 1 ML ONE (11:37)
[2017-03-13] MEDS ORDERED: Iopamidol 370 76% 50 ML VIAL FS ONE (11:37)
[2017-03-13 12:38] LABS: Anion Gap 11 mmol/L (10-20); BUN (Urea Nitrogen) 9 mg/dL (7.0-18.7); Calc. Creatinine Clearance 140 mL/min (70-130); Calcium 7.8 mg/dL (7.8-10.44); Carbon Dioxide 23 mmol/L (22-29); Chloride 108 mmol/L (98-107); Estimated GFR-MDRD 76; Phosphorus 2.3 mg/dL (2.3-4.7)
[2017-03-13] MEDS: HYDROcodone/Acetaminophen 7.5/325 mg Tablet PO PRN ×3 (13:24→22:46)
[2017-03-13] MEDS ORDERED: Magnesium Sulfate 6 GM in Sodium Chloride 0.9% 250 ML 250 ML IVPB SCH (14:45)
[2017-03-13] MEDS: traMADol HCl 50 MG TAB PO PRN (15:25)
--- NOTE | 2017-03-13 15:45 | PRG ---
DATE OF SERVICE: 03/13/2017 SERVICE: Pulmonary Medicine. INTERVAL HISTORY: The patient is doing really well from a cardiovascular and respiratory standpoint. Her abdominal pain is much improved. She has been walking with physical therapy and by herself. S he has no specific complaints this morning. She is wanting her diet. Her bowels continue to work. She had no recurrent nausea or vomiting. PHYSICAL EXAMINATION: VITAL SIGNS: Afebrile, pulse 106, blood pressure 130/87, respirations 18, saturation 95% on room air . GENERAL: Patient is awake, alert, no apparent distress. LUNGS: Excellent air entry with no prolonged expiratory phase. HEART: Normal rate, regular. ABDOMEN: Soft, nontender, nondistended, bowel sounds positive. MUSCULOSKELETAL: No cyanosis or clubbing. No pitting in the bilateral lower extremities. NEUROLOGIC: Grossly nonfocal. LABORATORY DATA: WBC 15.6 and downtrending, hemoglobin 10.5, platelets 473,000. C. diff antigen and toxin is negative. ASSESSMENT: 1. Acute hypoxic respiratory failure secondary to atelectasis of the bilateral lower lobes, resolved . 2. Severe sepsis secondary to peritonitis from biliary leak following cholecystectomy. 3. Yeast infection. PLAN: The patient's white blood cell count is dropping currently. Her band count however is up tren ding. This is a favorable thing like her body is catching up to the infection because clinically, sh e is much improved. That being said, we will continue to follow along intermittently for this reason .
--- NOTE | 2017-03-13 16:42 | PDOC.EVN ---
Event Note - Event Note Event Note: Spoke with Dr. Proctor about surgery assessment and possibility of discharge in near future. No cultures of fluid available. Patient's status had worsened on oral Cipro and Flagyl, now on Zosyn and improving. Will get CT abdomen with contrast to check for fluid collection/abscess. If neg can consider attempting switch to oral antibiotics.
[2017-03-13] MEDS: Enoxaparin Sodium 40 MG/0.4 ML SYRINGE SC SCH (22:19)
--- NOTE | 2017-03-13 23:39 | CT ---
ABDOMEN AND PELVIS CT WITH CONTRAST 03/13/17 Reference made to 03/08/17 exam. INDICATION: Bowel leak. FINDINGS: Bilateral pleural effusions are present. There is adjacent consolidation of each lung base. Stable hy podensity involves the anterior aspect of the liver near the junction of the left and right hepatic l obes. Redemonstration of postoperative cholecystectomy with associated pneumobilia and fluid density of the gallbladder fossa. There is also redemonstration of a small volume of subcapsular fluid along the posterior confines of the hepatic margin, not significantly progressed in volume. There is a prom inent volume of free fluid of the low abdomen and pelvis. This exerts mass effect upon the uterus, ad nexa and urinary bladder. This fluid collection does not contain a well formed, enhancing periphery. Density along its lateral margin bilaterally is most likely related to adnexal structures. No evidenc e of small bowel obstruction. There is a focal fluid density along the geodetic advisor curvature of the stoma ch measuring approximately 5.5 cm in an oblique, AP orientation, grossly stable in volume. There is a mild, thin, hyperdense periphery indicating organizing fluid collection. No additional significant interval change. IMPRESSION: 1. Interval development of a prominent volume of free fluid of the low abdomen and pelvis as abo ve. 2. Grossly stable subcapsular fluid density collection along the posterior confines of the right hepatic lobe. 3. Redemonstration of postoperative change of cholecystectomy with fluid density of the gallblad thu fossa. 4. Grossly stable in size organizing fluid collection along the greater curvature of the stomach . 5. Bilateral pleural effusions with adjacent consolidation. POS: C
[2017-03-14] MEDS: traMADol HCl 50 MG TAB PO PRN ×3 (01:06→15:41)
[2017-03-14] MEDS: Pantoprazole 40 MG VIAL IVP SCH ×2 (03:04→15:41)
[2017-03-14] MEDS: Piperacillin/Tazobactam 3.375 GM in Sodium Chloride 0.9% 100 ML IVPB SCH ×4 (03:14→22:11)
[2017-03-14] MEDS: HYDROcodone/Acetaminophen 7.5/325 mg Tablet PO PRN ×5 (03:24→22:16)
[2017-03-14 06:23] LABS: Hematocrit 28.5 % (36.0-47.0)
[2017-03-14] MEDS: Saccharomyces boulardii 250 MG CAP PO SCH (09:39)
[2017-03-14] MEDS: Enoxaparin Sodium 40 MG/0.4 ML SYRINGE SC SCH ×2 (09:39→22:11)
[2017-03-14] MEDS: Fluconazole 100 MG TAB PO SCH (09:39)
--- NOTE | 2017-03-14 12:09 | PDOC.PN ---
- Subjective Encounter Start Date: 03/14/17 Encounter Start Time: 11:30 Subjective: Patient with improved abdominal pain. No N/V. Eating well. - Objective MAR Reviewed: Yes Vital Signs & Weight: Vital Signs (12 hours) Temp Pulse Resp BP Pulse Ox 03/14/17 08:00 98.3 F 99 18 129/83 95 03/14/17 03:30 98.4 F 93 16 131/81 93 L 03/14/17 01:56 97 Weight Admit Weight 226 lb Weight 230 lb Most Recent Monitor Data Heart Rate from ECG 109 NIBP 125/91 NIBP BP-Mean 106 Respiration from ECG 19 SpO2 93 I&O: 03/13/17 03/14/17 03/15/17 06:59 06:59 06:59 Intake Total 720 2100 Balance 720 2100 Result Diagrams: 03/14/17 05:50 03/13/17 11:25 Phys Exam - Physical Examination Constitutional: NAD HEENT: moist MMs Respiratory: no wheezing, no rales, no rhonchi Cardiovascular: RRR, no significant murmur Gastrointestinal: soft, positive bowel sounds obese, mild TTP, no guarding Neurological: non-focal, moves all 4 limbs Psychiatric: normal affect, A&O x 3 Dx/Plan (1) Bile peritonitis Code(s): K65.3 - CHOLEPERITONITIS Status: Acute Comment: s/p ercp with stent (2) Elevated WBC count Code(s): D72.829 - ELEVATED WHITE BLOOD CELL COUNT, UNSPECIFIED Status: Acute Comment: improved with switch to Zosyn on 03/12 (3) Sepsis Code(s): A41.9 - SEPSIS, UNSPECIFIED ORGANISM Status: Acute (4) Acute hypoxemic respiratory failure Code(s): J96.01 - ACUTE RESPIRATORY FAILURE WITH HYPOXIA Status: Resolved (5) SBO (small bowel obstruction) Code(s): K56.609 - UNSP INTESTNL OBST, UNSP TO PARTIAL VERSUS COMPLETE OBST Status: Acute (6) Diarrhea Code(s): R19.7 - DIARRHEA, UNSPECIFIED Status: Acute (7) Hypokalemia Code(s): E87.6 - HYPOKALEMIA Status: Acute Comment: replace (8) Hypophosphatemia Code(s): E83.39 - OTHER DISORDERS OF PHOSPHORUS METABOLISM Status: Acute (9) Hypothyroid Code(s): E03.9 - HYPOTHYROIDISM, UNSPECIFIED Status: Acute (10) Obesity (BMI 30.0-34.9) Code(s): E66.9 - OBESITY, UNSPECIFIED Status: Acute (11) Superficial venous thrombosis of left arm Code(s): I82.612 - ACUTE EMBOLISM AND THOMBOS OF SUPERFIC VEINS OF L UP EXTREM Status: Acute Comment: not a deep vein, can go home on ASA only. - Plan cont current plan of care, continue antibiotics CT abdomen with new free fluid. Spoke with radiology, recommend HIDA scan -: to make sure not persistent bile leak. If not, can aspirate some fluid for -: culture. * . - Discharge Day Encounter end time: 12:00
[2017-03-14 13:21] LABS: Hematocrit 28.5 % (36.0-47.0); Mean Platelet Volume 6.9 fL (7.4-10.4); Red Blood Cell (RBC) Count 2.87 mill/uL (4.20-5.40); White Blood Cell (WBC) Count 17.5 thou/uL (4.8-10.8)
[2017-03-14 13:41] LABS: #Eosinphils 0.3 thou/uL (0.0-0.7); #Lymphocytes 2.4 thou/uL (1.20-3.40); #Monocytes 1.4 thou/uL (0.11-0.59); #Neutrophils 13.3 thou/uL (1.40-6.50); %Basophils 0.2 % (0.0-1.0); %Eosinophils 1.7 % (0.0-10.0); %Lymphocytes 13.9 % (21.0-51.0); %Monocytes 7.9 % (0.0-10.0); Anisocytosis SLIGHT = 6-15 cells (100X) (0-5/hpf); Toxic Granulation SLIGHT
--- NOTE | 2017-03-14 16:01 | NM ---
HEPATOBILIARY SCAN: Date: 03/14/17 HISTORY: Evaluate for bile leak, prior history of cholecystectomy on 03/03/17. The provided history reports bi liary leak treated with repair and CBD stent placement. TECHNIQUE: Following the intravenous administration of 5 mCi technetium-99m labeled mebrofenin, anterior imaging of the abdomen is obtained over 60 minutes. The pelvis is not imaged on this exam. This study demons trates prompt radiotracer activity within the hepatic parenchyma. There is biliary and small bowel ac tivity by 6 minutes. There is no abnormal collection of radiotracer in the expected location of the g allbladder fossa or perihepatic region. IMPRESSION: No scintigraphic evidence for active biliary leak in the gallbladder fossa. This does not exclude wal led-off biloma within the pelvis. POS: JARROD
--- NOTE | 2017-03-14 18:29 | PRG ---
DATE OF SERVICE: 03/14/2017 SUBJECTIVE: Patient is status post laparoscopic cholecystectomy that was done elsewhere then had a b ile leak, which appear to have resolved. The patient then was believed to be a small-bowel obstructi on, but was most likely ileus related to her resolving bile peritonitis. The patient over the last c ouple of days has increased her diet. She has also increased her mobility. She states that she is c ontinuing to pass gas and have bowel movements. She is tolerating a regular diet and her pain is con trolled. PHYSICAL EXAMINATION: VITAL SIGNS: Temperature is 98.3, heart rate 99, blood pressure 129/83, and respirations 18. GENERAL: Patient is resting comfortably in bed. She is awake, alert, and oriented x3. HEENT: Unremarkable. LUNGS: Clear to auscultation with good inspiratory and expiratory effort. HEART: Regular rate and rhythm. ABDOMEN: Soft with very minimal tenderness to palpation and no gross peritoneal signs. Patient also states that her abdomen is far less tender than previously. EXTREMITIES: Neurovascularly intact x4. LABORATORY FINDINGS: White blood cell count 17.5, hemoglobin 9.3, hematocrit 28.5, and platelets 626 . Radiographs, there are none reviewed this morning. Of note, the patient did have a CT of her abdomen and pelvis last night to evaluate for abscess formation, which did not show any gross changes with t he exception of a "interval development of prominent volume of free fluid of the lower abdomen and pe lvis as described in the body of the report. ASSESSMENT AND PLAN: 1. Resolved bile leak. 2. Resolved bile peritonitis. 3. Resolved ileus. Plan will be to continue as per the primary service. We would recommend continuing ambulation and re gular diet. There is no surgical indication for this patient at this time and after discussion with Dr. Brown, he agrees that we will sign off at this time. Please contact us if there are any changes.
--- NOTE | 2017-03-14 22:12 | PRG ---
DATE OF SERVICE: 03/14/2017 SERVICE: Pulmonary Medicine. INTERVAL HISTORY: The patient is doing great from a respiratory standpoint. She denies any fevers, chills or overnight events. Otherwise, everything seems to be okay except for a white blood cell cou nt that is going up. This prompted a CT scan demonstrating a collection of fluid. She is going to g o down for an IR drainage of this collection to determine whether or not it is infected, most likely it is. PHYSICAL EXAMINATION: VITAL SIGNS: Afebrile, pulse 95, blood pressure 146/84, respirations 20, saturation 95% on room air. GENERAL: Patient is awake and alert, in no apparent distress. LUNGS: Excellent air entry. There is no prolonged expiratory phase or wheezing. HEART: Normal rate, regular. ABDOMEN: Soft. Nontender. Bowel sounds are present. There is no rebound or guarding. Bowel sound s are present. MUSCULOSKELETAL: No cyanosis or clubbing. No pitting in the bilateral lower extremities. NEUROLOGIC: Grossly nonfocal. LABORATORY DATA: WBC is up trending to 17.5, hemoglobin 9.3. Basic metabolic profile is essentially unremarkable from yesterday. IMAGING: CT of the abdomen and pelvis demonstrates interval development of prominent volume of free fluid in the low abdomen and pelvis. Grossly stable subcapsular fluid density along the posterior co nfined to the right hepatic lobe. Postoperative cholecystectomy changes. Stable organizing fluid co llection along the greater curvature of the stomach. Bilateral pleural effusions are present with so me adjacent consolidation. Hepatobiliary scan demonstrates no evidence for active biliary leak in the gallbladder fossa. This d oes not exclude a walled off residual within the pelvis. ASSESSMENT: 1. Acute hypoxic respiratory failure secondary to atelectasis of the bilateral lower lobes. 2. Severe sepsis secondary to peritonitis from biliary leak following cholecystectomy. PLAN: The patient is actually going to go down for IR for sampling of this fluid. We will make cert ain it is sterile. If it is not, we will need to address the collection of fluid Pulmonary Critical Care will continue to follow until the patient more clearly turns the corner. Agree with antibiotic s covering floor.
[2017-03-15] MEDS: HYDROcodone/Acetaminophen 7.5/325 mg Tablet PO PRN ×3 (03:07→18:22)
[2017-03-15] MEDS: Pantoprazole 40 MG VIAL IVP SCH ×2 (03:30→15:47)
[2017-03-15] MEDS: Piperacillin/Tazobactam 3.375 GM in Sodium Chloride 0.9% 100 ML IVPB SCH ×4 (03:30→21:31)
[2017-03-15 07:00] LABS: #Eosinphils 0.2 thou/uL (0.0-0.7); #Lymphocytes 2.6 thou/uL (1.20-3.40); #Monocytes 1.5 thou/uL (0.11-0.59); #Neutrophils 12.9 thou/uL (1.40-6.50); %Basophils 0.3 % (0.0-1.0); %Eosinophils 1.4 % (0.0-10.0); %Lymphocytes 14.8 % (21.0-51.0); %Monocytes 8.8 % (0.0-10.0); Hematocrit 26.2 % (36.0-47.0); Mean Platelet Volume 6.8 fL (7.4-10.4); Red Blood Cell (RBC) Count 2.64 mill/uL (4.20-5.40); White Blood Cell (WBC) Count 17.3 thou/uL (4.8-10.8)
[2017-03-15 07:05] LABS: Anion Gap 9 mmol/L (10-20); BUN (Urea Nitrogen) 6 mg/dL (7.0-18.7); Calc. Creatinine Clearance 147 mL/min (70-130); Calcium 7.9 mg/dL (7.8-10.44); Carbon Dioxide 26 mmol/L (22-29); Chloride 107 mmol/L (98-107); Estimated GFR-MDRD 81
[2017-03-15] MEDS: Fluconazole 100 MG TAB PO SCH (08:39)
[2017-03-15] MEDS: Enoxaparin Sodium 40 MG/0.4 ML SYRINGE SC SCH ×2 (08:39→21:32)
[2017-03-15] MEDS: Saccharomyces boulardii 250 MG CAP PO SCH (08:39)
[2017-03-15] MEDS: traMADol HCl 50 MG TAB PO PRN (08:47)
[2017-03-15] MEDS ORDERED: Sterile Water 10 ML VIAL FS SCH (12:00)
[2017-03-15] MEDS ORDERED: Activase 2 MG VIAL CATH SCH (12:00)
--- NOTE | 2017-03-15 15:23 | PDOC.PN ---
- Subjective Encounter Start Date: 03/15/17 Encounter Start Time: 09:15 Subjective: no nausea or vomiting -: has a bm yesterday -: feels better - Objective MAR Reviewed: Yes Vital Signs & Weight: Vital Signs (12 hours) Temp Pulse Resp BP Pulse Ox 03/15/17 11:50 98.1 F 92 16 146/88 H 97 03/15/17 09:00 97.7 F 98 16 03/15/17 07:50 97.7 F 98 16 148/85 H 96 03/15/17 05:00 98.3 F 91 15 133/85 94 L Weight Admit Weight 226 lb Weight 230 lb Most Recent Monitor Data Heart Rate from ECG 109 NIBP 125/91 NIBP BP-Mean 106 Respiration from ECG 19 SpO2 93 I&O: 03/14/17 03/15/17 03/16/17 06:59 06:59 06:59 Intake Total 2100 1000 Balance 2100 1000 Result Diagrams: 03/15/17 06:38 03/15/17 06:38 Phys Exam - Physical Examination HEENT: PERRLA, moist MMs Neck: no JVD, supple Respiratory: no wheezing, no rales Cardiovascular: RRR, no significant murmur Gastrointestinal: soft, non-tender, no distention, positive bowel sounds Musculoskeletal: pulses present, edema present Neurological: non-focal, moves all 4 limbs Psychiatric: A&O x 3 Dx/Plan (1) Sepsis Code(s): A41.9 - SEPSIS, UNSPECIFIED ORGANISM Status: Acute Qualifiers: Sepsis type: sepsis due to unspecified organism Qualified Code(s): A41.9 - Sepsis, unspecified organism (2) Bile peritonitis Code(s): K65.3 - CHOLEPERITONITIS Status: Acute Comment: s/p ercp with stent (3) Obesity (BMI 30-39.9) Code(s): E66.9 - OBESITY, UNSPECIFIED Status: Chronic (4) Hypothyroid Code(s): E03.9 - HYPOTHYROIDISM, UNSPECIFIED Status: Chronic Qualifiers: Hypothyroidism type: unspecified Qualified Code(s): E03.9 - Hypothyroidism , unspecified - Plan wbc around 17 this morning -: is on zosyn and fluconazole, repeat HIDA no leak seen -: await IR for aspirating her intra-abdominal collection -: to ambulate as tolerated -: is on oral solid diet * . Review of Systems - Medications/Allergies Allergies/Adverse Reactions: Allergies Allergy/AdvReac Type Severity Reaction Status Date / Time chicken derived Allergy Verified 03/07/17 07:35 Egg Derived Allergy Verified 03/05/17 04:49 Sulfa (Sulfonamide Allergy Verified 03/05/17 04:49 Antibiotics) turkey Allergy Verified 03/07/17 07:36 Medications: Current Medications Acetaminophen (Tylenol) 1,000 mg PO Q6H PRN PRN Reason: Pain 1-3 Last Admin: 03/11/17 02:40 Dose: 1,000 mg Hydrocodone Bitart/Acetaminophen ([place] 7.5/325) 1 tab PO Q4H PRN PRN Reason: Mild Pain (1-3) Last Admin: 03/15/17 13:36 Dose: 1 tab Albuterol/Ipratropium (Duoneb) 3 ml NEB [id number] PRN PRN Reason: SOB &/or Wheezing Aspirin (Aspirin Chewable) 81 mg PO DAILY [facility] Last Admin: 03/15/17 08:39 Dose: 81 mg Calcium Carbonate (Tums) 500 mg PO Q6H PRN PRN Reason: .REFLUX Last Admin: 03/11/17 11:49 Dose: 500 mg Enoxaparin Sodium (Lovenox) 40 mg SC 0900,2100 [facility] Last Admin: 03/15/17 08:39 Dose: 40 mg Fluconazole (Diflucan) 100 mg PO DAILY [facility] Last Admin: 03/15/17 08:39 Dose: 100 mg Promethazine HCl 25 mg/ Sodium (Chloride) 101 mls @ 202 mls/hr IVPB Q8H PRN PRN Reason: Nausea/Vomiting Last Admin: 03/12/17 21:39 Dose: 101 mls Piperacillin Sod/Tazobactam (Sod 3.375 gm/ Sodium Chloride) 100 mls @ 200 mls/ hr IVPB 0400,1000,1600,2200 [facility] Last Admin: 03/15/17 10:45 Dose: 100 mls Discontinue Previous Narcotic Pain Medications And Benzodiazepines 1 each FS .ONE [facility] Stop: 04/04/17 20:50 Ondansetron HCl (Zofran) 4 mg IVP Q6H PRN PRN Reason: Nausea/Vomiting Pantoprazole Sodium (Protonix) 40 mg IVP Q12H [facility] Last Admin: 03/15/17 03:30 Dose: 40 mg Saccharomyces Boulardii (Florastor) 250 mg PO DAILY [facility] Last Admin: 03/15/17 08:39 Dose: 250 mg Sodium Chloride (Flush - Normal Saline) 10 ml IVF Q12HR [facility] Last Admin: 03/15/17 08:41 Dose: 10 ml Sodium Chloride (Flush - Normal Saline) 10 ml IVF PRN PRN PRN Reason: Saline Flush Last Admin: 03/13/17 02:45 Dose: 10 ml Sodium Chloride (Flush - Normal Saline) 10 ml IVF PRN PRN PRN Reason: Saline Flush Sumatriptan Succinate (Imitrex) 100 mg PO Q6H PRN PRN Reason: MIGRAINE HEADACHE Last Admin: 03/07/17 17:48 Dose: 100 mg Tramadol HCl (Ultram) 50 mg PO Q6H PRN PRN Reason: Moderate Pain (4-6) Last Admin: 03/14/17 10:10 Dose: 50 mg Tramadol HCl (Ultram) 100 mg PO Q6H PRN PRN Reason: Severe Pain (7-10) Last Admin: 03/15/17 08:47 Dose: 100 mg
--- NOTE | 2017-03-15 17:26 | PRG ---
DATE OF SERVICE: 03/15/2017 SUBJECTIVE: The patient still has diffuse abdominal pain, which is moderate. No headaches and no br eathing difficulty, no vomiting. Voiding without difficulty. She has been afebrile. OBJECTIVE: VITAL SIGNS: BP 140/88, pulse 92. GENERAL: Awake, alert, oriented, pleasant. NECK: No jugular vein distention. LUNGS: Symmetric air entry. HEART: S1, S2, regular rate. ABDOMEN: Distended, moderately, tender diffusely so. GENITOURINARY: No Rollins catheter. EXTREMITIES: 1+ edema in lower extremities. LABORATORY DATA: White cell count went down to 15.6, now is up to 17.3, hemoglobin 8.6, platelets 62 7. Sodium 136, creatinine 0.76. C. difficile stool antigen and toxin negative. Repeat CT abdomen a nd pelvis shows prominent volume of free fluid in low abdomen and pelvis, stable subcapsular fluid de nsity, organizing fluid collection along the greater curvature of the stomach. ASSESSMENT AND DISCUSSION: Status post elective cholecystectomy with complication of biliary leak an d now persistent inflammatory changes with developing fluid collections in the intra-abdominal and pe lvis compartment. In view of the persistence of neutrophilia, the concern is with the complex intra- abdominal and pelvic collections that I may eventually organize in form of abscesses. She may need a percutaneous aspirate CT guided to submit for cultures and cell count. Continue IV antimicrobial th erapy for the time being.
--- NOTE | 2017-03-15 21:16 | PRG ---
DATE OF SERVICE: 03/15/2017 SERVICE: Pulmonary Medicine. INTERVAL HISTORY: The patient is doing great from a cardiovascular and respiratory standpoint. She denies any current fevers, chills, nausea, or vomiting. She got up and walked over 5 times today. O therwise, there has been no interval change to her condition. She actually feels much improved. PHYSICAL EXAMINATION: VITAL SIGNS: Afebrile, pulse 94, blood pressure 153/95, respirations 16, saturation 94% on room air. GENERAL: The patient is awake and alert, in no apparent distress. LUNGS: Excellent air entry. There is no prolonged expiratory phase or wheezing. HEART: Normal rate, regular. ABDOMEN: Soft, nontender, nondistended, bowel sounds positive. MUSCULOSKELETAL: No cyanosis or clubbing. There is 1-2+ pitting in the bilateral lower extremities. NEUROLOGIC: Grossly nonfocal. LABORATORY DATA: WBC 17.3 and roughly stable, hemoglobin 8.6. Platelets 627,000, which continue to trend upward. Neutrophil count is stable at 75%. Basic metabolic profile was essentially unremarkab le. Strep and Legionella urinary antigen are unremarkable. C. diff antigen and toxin are negative. ASSESSMENT: 1. Acute hypoxic respiratory failure secondary to atelectasis of the bilateral lower lobes. 2. Severe sepsis secondary to peritonitis from biliary leak, following cholecystectomy. PLAN: The patient got bumped for the IR procedure. She remains a little bit volume overloaded. I w ill provide her with 1 dose of Lasix, but give her tomorrow morning. I will continue to follow along for 1-2 additional days to make certain that she remains stable. It seems that she is turning that corner at this point.
[2017-03-16] MEDS: traMADol HCl 50 MG TAB PO PRN ×4 (00:32→23:22)
[2017-03-16] MEDS: Pantoprazole 40 MG VIAL IVP SCH (04:07)
[2017-03-16] MEDS: Piperacillin/Tazobactam 3.375 GM in Sodium Chloride 0.9% 100 ML IVPB SCH ×4 (04:08→21:33)
[2017-03-16 04:52] LABS: Hematocrit 26.6 % (36.0-47.0)
[2017-03-16] MEDS: HYDROcodone/Acetaminophen 7.5/325 mg Tablet PO PRN ×3 (07:17→21:33)
[2017-03-16] MEDS: Fluconazole 100 MG TAB PO SCH (08:35)
[2017-03-16] MEDS: Enoxaparin Sodium 40 MG/0.4 ML SYRINGE SC SCH ×2 (08:36→21:33)
[2017-03-16] MEDS: Saccharomyces boulardii 250 MG CAP PO SCH (08:36)
[2017-03-16] MEDS ORDERED: Furosemide 20 MG/2 ML VIAL SLOW IVP SCH (09:00)
[2017-03-16 09:01] LABS: Hematocrit 27.8 % (36.0-47.0); Mean Platelet Volume 6.6 fL (7.4-10.4); White Blood Cell (WBC) Count 15.3 thou/uL (4.8-10.8)
[2017-03-16 09:16] LABS: #Basophils 0.1 thou/uL (0.0-0.2); #Eosinphils 0.3 thou/uL (0.0-0.7); #Lymphocytes 2.6 thou/uL (1.20-3.40); #Monocytes 1.4 thou/uL (0.11-0.59); #Neutrophils 10.9 thou/uL (1.40-6.50); %Basophils 0.7 % (0.0-1.0); %Eosinophils 2.1 % (0.0-10.0); %Lymphocytes 16.8 % (21.0-51.0); %Monocytes 9.1 % (0.0-10.0); Band 8 % (5-11); Hypochromia SLIGHT = 6-15 cells (100X) (0-5/hpf); Myelocyte 1 % (0-0); Neutrophil 68 % (42-75); Polychromasia SLIGHT = 2-3 cells (100X) (0-2/hpf)
[2017-03-16 09:24] LABS: ALT (SGPT) 10 U/L (8-55); AST (SGOT) 16 U/L (5-34); Alkaline Phosphatase 52 U/L (40-150); Anion Gap 8 mmol/L (10-20); BUN (Urea Nitrogen) 5 mg/dL (7.0-18.7); Bilirubin, Total 0.4 mg/dL (0.2-1.2); Calc. Creatinine Clearance 140 mL/min (70-130); Calcium 8.2 mg/dL (7.8-10.44); Carbon Dioxide 29 mmol/L (22-29); Chloride 105 mmol/L (98-107); Estimated GFR-MDRD 76; Globulin 2.9 g/dL (2.4-3.5); Protein, Total 5.5 g/dL (6.0-8.3)
--- NOTE | 2017-03-16 11:03 | PDOC.PN ---
- Subjective Encounter Start Date: 03/16/17 Encounter Start Time: 09:00 Subjective: is amb in room and hallway -: no nausea or vomiting or abd pain now -: tolerating oral diet - Objective MAR Reviewed: Yes Vital Signs & Weight: Vital Signs (12 hours) Temp Pulse Resp BP Pulse Ox 03/16/17 08:00 98.4 F 95 12 142/87 H 94 L 03/16/17 03:47 98.4 F 91 14 135/85 96 03/16/17 00:20 99.2 F 108 H 17 148/66 H 96 Weight Admit Weight 226 lb Weight 230 lb Most Recent Monitor Data Heart Rate from ECG 109 NIBP 125/91 NIBP BP-Mean 106 Respiration from ECG 19 SpO2 93 I&O: 03/15/17 03/16/17 03/17/17 06:59 06:59 06:59 Intake Total 1000 Balance 1000 Result Diagrams: 03/16/17 08:45 03/16/17 08:45 Phys Exam - Physical Examination HEENT: PERRLA, moist MMs Neck: no JVD, supple Respiratory: no wheezing, no rales Cardiovascular: RRR, no significant murmur Gastrointestinal: soft, non-tender, no distention, positive bowel sounds Musculoskeletal: pulses present, edema present Neurological: non-focal, moves all 4 limbs Psychiatric: A&O x 3 Dx/Plan (1) Sepsis Code(s): A41.9 - SEPSIS, UNSPECIFIED ORGANISM Status: Acute Qualifiers: Sepsis type: sepsis due to unspecified organism Qualified Code(s): A41.9 - Sepsis, unspecified organism (2) Bile peritonitis Code(s): K65.3 - CHOLEPERITONITIS Status: Acute Comment: s/p ercp with stent (3) Obesity (BMI 30-39.9) Code(s): E66.9 - OBESITY, UNSPECIFIED Status: Chronic (4) Hypothyroid Code(s): E03.9 - HYPOTHYROIDISM, UNSPECIFIED Status: Chronic Qualifiers: Hypothyroidism type: unspecified Qualified Code(s): E03.9 - Hypothyroidism , unspecified - Plan is on zosyn, diflucan -: wbc is trending down -: d/w radiologist, no drainable fluid around liver, the one behind stomach is -: not accesible. Has pelvic free fluid with no organized loculation to say ab -: scess. Plan to continue current antibiotics for 24-36hrs with steady declin * . -e in her leucocytosis. Likely oral augmentin for dc plan or cipro/flagyl. Has been afebrile. Gen surgery has signed off. If pt gets unstable may need repeat CT with iv contrast. Gentle diuresis with iv lasix (may be free pelvic fluid will resolve) Review of Systems - Medications/Allergies Allergies/Adverse Reactions: Allergies Allergy/AdvReac Type Severity Reaction Status Date / Time chicken derived Allergy Verified 03/07/17 07:35 Egg Derived Allergy Verified 03/05/17 04:49 Sulfa (Sulfonamide Allergy Verified 03/05/17 04:49 Antibiotics) turkey Allergy Verified 03/07/17 07:36 Medications: Current Medications Acetaminophen (Tylenol) 1,000 mg PO Q6H PRN PRN Reason: Pain 1-3 Last Admin: 03/11/17 02:40 Dose: 1,000 mg Hydrocodone Bitart/Acetaminophen ([place] 7.5/325) 1 tab PO Q4H PRN PRN Reason: Mild Pain (1-3) Last Admin: 03/16/17 07:17 Dose: 1 tab Albuterol/Ipratropium (Duoneb) 3 ml NEB [id number] PRN PRN Reason: SOB &/or Wheezing Aspirin (Aspirin Chewable) 81 mg PO DAILY [facility] Last Admin: 03/16/17 08:35 Dose: 81 mg Calcium Carbonate (Tums) 500 mg PO Q6H PRN PRN Reason: .REFLUX Last Admin: 03/11/17 11:49 Dose: 500 mg Enoxaparin Sodium (Lovenox) 40 mg SC 0900,2100 [facility] Last Admin: 03/16/17 08:36 Dose: 40 mg Fluconazole (Diflucan) 100 mg PO DAILY [facility] Last Admin: 03/16/17 08:35 Dose: 100 mg Promethazine HCl 25 mg/ Sodium (Chloride) 101 mls @ 202 mls/hr IVPB Q8H PRN PRN Reason: Nausea/Vomiting Last Admin: 03/12/17 21:39 Dose: 101 mls Piperacillin Sod/Tazobactam (Sod 3.375 gm/ Sodium Chloride) 100 mls @ 200 mls/ hr IVPB 0400,1000,1600,2200 [facility] Last Admin: 03/16/17 10:33 Dose: 100 mls Discontinue Previous Narcotic Pain Medications And Benzodiazepines 1 each FS .ONE [facility] Stop: 04/04/17 20:50 Ondansetron HCl (Zofran) 4 mg IVP Q6H PRN PRN Reason: Nausea/Vomiting Pantoprazole Sodium (Protonix) 40 mg IVP Q12H [facility] Last Admin: 03/16/17 04:07 Dose: 40 mg Saccharomyces Boulardii (Florastor) 250 mg PO DAILY [facility] Last Admin: 03/16/17 08:36 Dose: 250 mg Sodium Chloride (Flush - Normal Saline) 10 ml IVF Q12HR [facility] Last Admin: 03/16/17 10:49 Dose: Not Given Sodium Chloride (Flush - Normal Saline) 10 ml IVF PRN PRN PRN Reason: Saline Flush Last Admin: 03/13/17 02:45 Dose: 10 ml Sodium Chloride (Flush - Normal Saline) 10 ml IVF PRN PRN PRN Reason: Saline Flush Sumatriptan Succinate (Imitrex) 100 mg PO Q6H PRN PRN Reason: MIGRAINE HEADACHE Last Admin: 03/07/17 17:48 Dose: 100 mg Tramadol HCl (Ultram) 50 mg PO Q6H PRN PRN Reason: Moderate Pain (4-6) Last Admin: 03/14/17 10:10 Dose: 50 mg Tramadol HCl (Ultram) 100 mg PO Q6H PRN PRN Reason: Severe Pain (7-10) Last Admin: 03/16/17 10:32 Dose: 100 mg
[2017-03-16] MEDS ORDERED: traMADol HCl 50 MG TAB PO PRN (14:59)
[2017-03-17] MEDS: Piperacillin/Tazobactam 3.375 GM in Sodium Chloride 0.9% 100 ML IVPB SCH ×4 (04:13→22:34)
[2017-03-17] MEDS: HYDROcodone/Acetaminophen 7.5/325 mg Tablet PO PRN ×3 (04:19→18:08)
[2017-03-17 07:24] LABS: ALT (SGPT) 11 U/L (8-55); AST (SGOT) 18 U/L (5-34); Alkaline Phosphatase 54 U/L (40-150); Anion Gap 9 mmol/L (10-20); BUN (Urea Nitrogen) 5 mg/dL (7.0-18.7); Bilirubin, Total 0.4 mg/dL (0.2-1.2); Calc. Creatinine Clearance 137 mL/min (70-130); Carbon Dioxide 29 mmol/L (22-29); Chloride 105 mmol/L (98-107); Estimated GFR-MDRD 74; Protein, Total 5.4 g/dL (6.0-8.3)
[2017-03-17] MEDS: Saccharomyces boulardii 250 MG CAP PO SCH (08:01)
[2017-03-17] MEDS: Fluconazole 100 MG TAB PO SCH (08:01)
[2017-03-17] MEDS: Furosemide 40 MG TAB PO SCH (08:01)
[2017-03-17] MEDS: traMADol HCl 50 MG TAB PO PRN ×3 (08:01→22:35)
[2017-03-17] MEDS: Enoxaparin Sodium 40 MG/0.4 ML SYRINGE SC SCH (08:02)
[2017-03-17 08:11] LABS: #Basophils 0.1 thou/uL (0.0-0.2); #Eosinphils 0.3 thou/uL (0.0-0.7); #Lymphocytes 3.5 thou/uL (1.20-3.40); #Monocytes 1.4 thou/uL (0.11-0.59); #Neutrophils 9.8 thou/uL (1.40-6.50); %Basophils 0.8 % (0.0-1.0); %Eosinophils 2.3 % (0.0-10.0); %Lymphocytes 22.9 % (21.0-51.0); %Monocytes 9.5 % (0.0-10.0); Hematocrit 25.8 % (36.0-47.0); Mean Platelet Volume 6.7 fL (7.4-10.4); White Blood Cell (WBC) Count 15.3 thou/uL (4.8-10.8)
[2017-03-17 08:27] LABS: Band 8 % (5-11); Metamyelocyte 1 % (0-0); Neutrophil 65 % (42-75)
[2017-03-17] MEDS ORDERED: Potassium Chloride 20 MEQ TAB PO SCH ×2 (10:15→16:45)
[2017-03-17 10:38] LABS: Magnesium 1.4 mg/dL (1.6-2.6); Phosphorus 3.5 mg/dL (2.3-4.7)
--- NOTE | 2017-03-17 14:06 | PDOC.PN ---
- Subjective Encounter Start Date: 03/17/17 Encounter Start Time: 14:05 Patient seen and examined. Some periumbilical abd pain - last BM today - soft. No N/V. Ambulating in hallway. No overnight events - Objective MAR Reviewed: Yes Vital Signs & Weight: Vital Signs (12 hours) Temp Pulse Resp BP Pulse Ox 03/17/17 07:20 97.9 F 92 18 137/85 94 L Weight Admit Weight 226 lb Weight 230 lb Most Recent Monitor Data Heart Rate from ECG 109 NIBP 125/91 NIBP BP-Mean 106 Respiration from ECG 19 SpO2 93 Result Diagrams: 03/17/17 06:38 03/17/17 06:38 Phys Exam - Physical Examination Constitutional: NAD Respiratory: no wheezing, no rales, no rhonchi Cardiovascular: RRR, no rub Gastrointestinal: soft, positive bowel sounds mild gen tenderness/ no rebound or guarding Musculoskeletal: edema present Neurological: non-focal, moves all 4 limbs Psychiatric: A&O x 3 Dx/Plan - Plan DVT proph w/lovenox, DVT proph w/SCDs IMPRESSION: 1. Sepsis due to peritonitis from bile leak from Lap Cyndi s/p ERCP with stent placement 2. Acute hypoxic respiratory failure due to Atelectasis 3. Ileus - improved 4. Obesity BMI 35 5. Hypothyroidism 6. Electrolyte abn - hypokalemia/hypomagnesemia 1.4 7. Superficial LUE thrombus PLAN: * Change Lovenox to once daily * Replace Mg and Potassium * AM labs * Cont Zosyn * ID following * Add Florastor * Change ASA to 325 mg daily * Cont other meds as below Review of Systems - Review of Systems Constitutional: negative: Fever, Chills, Sweats, Weakness, Malaise Respiratory: negative: Cough, Dry, Shortness of Breath, Hemoptysis, SOB with Excertion, Pleuritic Pain, Sputum, Wheezing Cardiovascular: negative: Chest Pain, Palpitations, Orthopnea, Paroxysmal Noc. Dyspnea, Edema, Light Headedness Gastrointestinal: negative: Nausea, Vomiting, Abdominal Pain, Diarrhea, Constipation, Melena, Hematochezia - Medications/Allergies Allergies/Adverse Reactions: Allergies Allergy/AdvReac Type Severity Reaction Status Date / Time chicken derived Allergy Verified 03/07/17 07:35 Egg Derived Allergy Verified 03/05/17 04:49 Sulfa (Sulfonamide Allergy Verified 03/05/17 04:49 Antibiotics) turkey Allergy Verified 03/07/17 07:36 Medications: Current Medications Acetaminophen (Tylenol) 1,000 mg PO Q6H PRN PRN Reason: Pain 1-3 Last Admin: 03/11/17 02:40 Dose: 1,000 mg Hydrocodone Bitart/Acetaminophen ([place] 7.5/325) 1 tab PO Q4H PRN PRN Reason: Mild Pain (1-3) Last Admin: 03/17/17 11:18 Dose: 1 tab Albuterol/Ipratropium (Duoneb) 3 ml NEB [id number] PRN PRN Reason: SOB &/or Wheezing Aspirin (Ecotrin) 325 mg PO DAILY [facility] Calcium Carbonate (Tums) 500 mg PO Q6H PRN PRN Reason: .REFLUX Last Admin: 03/11/17 11:49 Dose: 500 mg Enoxaparin Sodium (Lovenox) 40 mg SC 0900 [facility] Fluconazole (Diflucan) 100 mg PO DAILY [facility] Last Admin: 03/17/17 08:01 Dose: 100 mg Furosemide (Lasix) 40 mg PO DAILY [facility] Last Admin: 03/17/17 08:01 Dose: 40 mg Piperacillin Sod/Tazobactam (Sod 3.375 gm/ Sodium Chloride) 100 mls @ 200 mls/ hr IVPB 0400,1000,1600,2200 [facility] Last Admin: 03/17/17 11:17 Dose: 100 mls Ondansetron HCl (Zofran) 4 mg IVP Q6H PRN PRN Reason: Nausea/Vomiting Pantoprazole Sodium (Protonix) 40 mg PO DAILY [facility] Last Admin: 03/17/17 08:01 Dose: 40 mg Potassium Chloride (Klor-Con 10) 10 meq PO BID-[facility] Saccharomyces Boulardii (Florastor) 250 mg PO DAILY [facility] Last Admin: 03/17/17 08:01 Dose: 250 mg Saccharomyces Boulardii (Florastor) 250 mg PO DAILY [facility] Sodium Chloride (Flush - Normal Saline) 10 ml IVF Q12HR [facility] Last Admin: 03/17/17 11:24 Dose: 10 ml Sodium Chloride (Flush - Normal Saline) 10 ml IVF PRN PRN PRN Reason: Saline Flush Last Admin: 03/17/17 04:21 Dose: 10 ml Sodium Chloride (Flush - Normal Saline) 10 ml IVF PRN PRN PRN Reason: Saline Flush Sumatriptan Succinate (Imitrex) 100 mg PO Q6H PRN PRN Reason: MIGRAINE HEADACHE Last Admin: 03/07/17 17:48 Dose: 100 mg Tramadol HCl (Ultram) 50 mg PO Q6H PRN PRN Reason: Moderate Pain (4-6) Tramadol HCl (Ultram) 100 mg PO Q6H PRN PRN Reason: Severe Pain (7-10) Last Admin: 03/17/17 08:01 Dose: 100 mg
[2017-03-17] MEDS: Potassium Chloride 10 MEQ TAB PO SCH (18:03)
--- NOTE | 2017-03-17 18:09 | PRG ---
DATE OF SERVICE: 03/17/2017 SERVICE: Pulmonary Medicine. INTERVAL HISTORY: The patient is doing fine from a respiratory standpoint. She is breathing very co mfortably. She is hopeful to go home over the next 24 to 48 hours. Her Interventional Radiology is not able to assess these fluid collections from a minimally invasive approach. Surgery has signed of f on her and does not think there is role for additional surgeries at this time. As such, she is goi ng to be continued on a long course of antibiotics. This will be interrupted at some point in the fu ture. I have counseled the patient extensively to watch for additional signs of inflammation includi ng fever, chills, lack of appetite, nausea, vomiting or diarrhea. She is to let the medical communit y know if she has any on onset of these symptoms. Otherwise, she is feeling better day by day. She went walking yesterday and today. With each day, she continues to make positive improvement. PHYSICAL EXAMINATION: VITAL SIGNS: Afebrile, pulse 99, blood pressure 142/85, respirations 20, saturation 99% on room air. GENERAL: The patient is awake, alert, no apparent distress. LUNGS: Decent air entry. There is no prolonged expiratory phase or wheezing. HEART: Normal rate, regular. ABDOMEN: Soft, nontender, nondistended. Bowel sounds positive. MUSCULOSKELETAL: No cyanosis or clubbing. No pitting in the bilateral lower extremities. NEUROLOGIC: Grossly nonfocal. LABORATORY DATA: WBC 15.3, hemoglobin 8.4, platelets 741,000 which is now stable. Potassium 3.4. B asic metabolic profile is otherwise unremarkable. Magnesium is 1.4. ASSESSMENT: 1. Acute hypoxic respiratory failure secondary to atelectasis in the bilateral lower lobes. 2. Severe sepsis secondary to peritonitis from biliary leak, following cholecystectomy. PLAN: Because she cannot undergo IR evaluation of these pockets of fluid, the patient is going to be discharged home on longer course of antibiotics. I have counseled her about letting the medical com munity know about increasing signs of inflammation including those things listed above. Magnesium an d potassium will be replaced today. At this point, she does make improvements day by day. As such, if she decompensates, I do not think it will be in the short term. As such, she has no further requi rements for inpatient Pulmonary Critical Care opinion. I will sign off. Please call with additional questions or concerns moving forward.
[2017-03-18] MEDS: HYDROcodone/Acetaminophen 7.5/325 mg Tablet PO PRN ×4 (01:52→21:44)
[2017-03-18] MEDS: Piperacillin/Tazobactam 3.375 GM in Sodium Chloride 0.9% 100 ML IVPB SCH ×2 (04:50→09:24)
[2017-03-18 06:55] LABS: #Basophils 0.1 thou/uL (0.0-0.2); #Eosinphils 0.3 thou/uL (0.0-0.7); #Lymphocytes 2.8 thou/uL (1.20-3.40); #Monocytes 1.2 thou/uL (0.11-0.59); #Neutrophils 7.7 thou/uL (1.40-6.50); %Basophils 0.7 % (0.0-1.0); %Eosinophils 2.7 % (0.0-10.0); %Monocytes 9.5 % (0.0-10.0); Mean Platelet Volume 6.6 fL (7.4-10.4); Red Blood Cell (RBC) Count 2.62 mill/uL (4.20-5.40)
[2017-03-18 07:08] LABS: ALT (SGPT) 9 U/L (8-55); AST (SGOT) 16 U/L (5-34); Alkaline Phosphatase 55 U/L (40-150); Anion Gap 9 mmol/L (10-20); BUN (Urea Nitrogen) 5 mg/dL (7.0-18.7); Bilirubin, Total 0.3 mg/dL (0.2-1.2); Calc. Creatinine Clearance 135 mL/min (70-130); Calcium 8.2 mg/dL (7.8-10.44); Carbon Dioxide 28 mmol/L (22-29); Chloride 104 mmol/L (98-107); Estimated GFR-MDRD 73; Protein, Total 5.5 g/dL (6.0-8.3)
[2017-03-18] MEDS: Enoxaparin Sodium 40 MG/0.4 ML SYRINGE SC SCH (08:55)
[2017-03-18] MEDS: Saccharomyces boulardii 250 MG CAP PO SCH ×2 (08:55→08:57)
[2017-03-18] MEDS: Aspirin 325 mg Enteric Coated Tablet PO SCH (08:55)
[2017-03-18] MEDS: Furosemide 40 MG TAB PO SCH (08:55)
[2017-03-18] MEDS: Potassium Chloride 10 MEQ TAB PO SCH ×2 (08:55→18:00)
[2017-03-18] MEDS: Fluconazole 100 MG TAB PO SCH (08:55)
[2017-03-18] MEDS: traMADol HCl 50 MG TAB PO PRN ×2 (11:41→18:03)
--- NOTE | 2017-03-18 12:52 | PRG ---
DATE OF SERVICE: 03/18/2017 SUBJECTIVE: Feeling better, less distention in the abdominal area, less pain. No respiratory sympto ms, no diarrhea. Voiding without difficulty. OBJECTIVE: VITAL SIGNS: She has been afebrile. LUNGS: With symmetric clear breath sounds. HEART: S1 and S2, regular rate. ABDOMEN: Softer, less tender. No evidence of ascites or organomegaly. No bladder distention. LABORATORY DATA: White cell count down to 15.3, hemoglobin 8.4, platelets 741 and today's white cell count is down to 12,000. The chemistry is normal and liver profile normal. Albumin 2.5. The radio logist could not do the percutaneous aspirate because the fluid in the abdominal area has decreased s ignificantly. The fluid in the left upper quadrant is behind the gastric area. ASSESSMENT AND DISCUSSION: Elective cholecystectomy with biliary leak and then persistence of inflam matory changes, which have improved with broad-spectrum antimicrobial therapy including Zosyn. At th is point, we will transition the patient to oral ciprofloxacin and Flagyl and see if she will remain afebrile and continue to improve hopefully discharge on Cipro and Flagyl for another few days.
[2017-03-18] MEDS: metroNIDAZOLE 500 MG TAB PO SCH ×2 (15:48→21:42)
--- NOTE | 2017-03-18 23:43 | PDOC.PN ---
- Subjective Encounter Start Date: 03/18/17 Encounter Start Time: 16:00 Patient seen and examined. Some Nausea/RUQ discomfort. No overnight events - Objective MAR Reviewed: Yes Vital Signs & Weight: Vital Signs (12 hours) Temp Pulse Resp BP Pulse Ox 03/18/17 20:49 98.1 F 90 16 150/89 H 100 03/18/17 20:14 97.9 F 89 20 95 03/18/17 16:25 97.9 F 89 20 147/111 H 95 03/18/17 12:00 98.0 F 86 16 162/92 H 94 L Weight Admit Weight 226 lb Weight 230 lb Most Recent Monitor Data Heart Rate from ECG 109 NIBP 125/91 NIBP BP-Mean 106 Respiration from ECG 19 SpO2 93 Result Diagrams: 03/18/17 05:00 03/18/17 05:00 Phys Exam - Physical Examination Constitutional: NAD Respiratory: no wheezing, no rhonchi Cardiovascular: RRR, no rub Gastrointestinal: soft, non-tender, positive bowel sounds Musculoskeletal: edema present Neurological: moves all 4 limbs Dx/Plan - Plan DVT proph w/lovenox, DVT proph w/SCDs IMPRESSION: 1. Sepsis due to peritonitis from bile leak from Lap Cyndi s/p ERCP with stent placement 2. Acute hypoxic respiratory failure due to Atelectasis 3. Ileus - improved 4. Obesity BMI 35 5. Hypothyroidism 6. Electrolyte abn - hypokalemia/hypomagnesemia - corrected 7. Superficial LUE thrombus PLAN: * Change Atbx to PO - I d/w with Dr Proctor * Cont ambulation * Cont other meds as below * DC planning Review of Systems - Review of Systems Respiratory: negative: Cough, Dry, Shortness of Breath, Hemoptysis, SOB with Excertion, Pleuritic Pain, Sputum, Wheezing Cardiovascular: negative: Chest Pain, Palpitations, Orthopnea, Paroxysmal Noc. Dyspnea, Edema, Light Headedness - Medications/Allergies Allergies/Adverse Reactions: Allergies Allergy/AdvReac Type Severity Reaction Status Date / Time chicken derived Allergy Verified 03/07/17 07:35 Egg Derived Allergy Verified 03/05/17 04:49 Sulfa (Sulfonamide Allergy Verified 03/05/17 04:49 Antibiotics) turkey Allergy Verified 03/07/17 07:36 Medications: Current Medications Acetaminophen (Tylenol) 1,000 mg PO Q6H PRN PRN Reason: Pain 1-3 Last Admin: 03/11/17 02:40 Dose: 1,000 mg Hydrocodone Bitart/Acetaminophen ([place] 7.5/325) 1 tab PO Q4H PRN PRN Reason: Mild Pain (1-3) Last Admin: 03/18/17 21:44 Dose: 1 tab Albuterol/Ipratropium (Duoneb) 3 ml NEB [id number] PRN PRN Reason: SOB &/or Wheezing Aspirin (Ecotrin) 325 mg PO DAILY [facility] Last Admin: 03/18/17 08:55 Dose: 325 mg Calcium Carbonate (Tums) 500 mg PO Q6H PRN PRN Reason: .REFLUX Last Admin: 03/11/17 11:49 Dose: 500 mg Enoxaparin Sodium (Lovenox) 40 mg SC 0900 [facility] Last Admin: 03/18/17 08:55 Dose: 40 mg Fluconazole (Diflucan) 100 mg PO DAILY [facility] Last Admin: 03/18/17 08:55 Dose: 100 mg Furosemide (Lasix) 40 mg PO DAILY [facility] Last Admin: 03/18/17 08:55 Dose: 40 mg Levofloxacin (Levaquin) 750 mg PO 0600 [facility] Metronidazole (Flagyl) 500 mg PO TID [facility] Last Admin: 03/18/17 21:42 Dose: 500 mg Ondansetron HCl (Zofran) 4 mg IVP Q6H PRN PRN Reason: Nausea/Vomiting Pantoprazole Sodium (Protonix) 40 mg PO DAILY [facility] Last Admin: 03/18/17 08:55 Dose: 40 mg Potassium Chloride (Klor-Con 10) 10 meq PO BID-[facility] Last Admin: 03/18/17 18:00 Dose: 10 meq Saccharomyces Boulardii (Florastor) 250 mg PO DAILY [facility] Last Admin: 03/18/17 08:57 Dose: Not Given Sodium Chloride (Flush - Normal Saline) 10 ml IVF Q12HR [facility] Last Admin: 03/18/17 21:45 Dose: 10 ml Sodium Chloride (Flush - Normal Saline) 10 ml IVF PRN PRN PRN Reason: Saline Flush Last Admin: 03/17/17 22:47 Dose: 10 ml Sodium Chloride (Flush - Normal Saline) 10 ml IVF PRN PRN PRN Reason: Saline Flush Sumatriptan Succinate (Imitrex) 100 mg PO Q6H PRN PRN Reason: MIGRAINE HEADACHE Last Admin: 03/07/17 17:48 Dose: 100 mg Tramadol HCl (Ultram) 50 mg PO Q6H PRN PRN Reason: Moderate Pain (4-6) Tramadol HCl (Ultram) 100 mg PO Q6H PRN PRN Reason: Severe Pain (7-10) Last Admin: 03/18/17 18:03 Dose: 100 mg
[2017-03-19] MEDS: HYDROcodone/Acetaminophen 7.5/325 mg Tablet PO PRN ×4 (02:17→23:50)
[2017-03-19] MEDS: SUMAtriptan Succinate 50 MG TAB PO PRN ×3 (07:56→21:33)
[2017-03-19] MEDS: metroNIDAZOLE 500 MG TAB PO SCH ×3 (08:39→21:30)
[2017-03-19] MEDS: Potassium Chloride 10 MEQ TAB PO SCH ×2 (08:39→15:32)
[2017-03-19] MEDS: Fluconazole 100 MG TAB PO SCH (08:40)
[2017-03-19] MEDS: Furosemide 40 MG TAB PO SCH (08:40)
[2017-03-19] MEDS: Saccharomyces boulardii 250 MG CAP PO SCH (08:40)
[2017-03-19] MEDS: traMADol HCl 50 MG TAB PO PRN ×2 (08:40→15:33)
[2017-03-19] MEDS: Aspirin 325 mg Enteric Coated Tablet PO SCH (08:40)
[2017-03-19] MEDS: Enoxaparin Sodium 40 MG/0.4 ML SYRINGE SC SCH (08:48)
[2017-03-19 11:45] LABS: #Basophils 0.1 thou/uL (0.0-0.2); #Eosinphils 0.3 thou/uL (0.0-0.7); #Lymphocytes 2.8 thou/uL (1.20-3.40); #Monocytes 1.1 thou/uL (0.11-0.59); #Neutrophils 9.7 thou/uL (1.40-6.50); %Basophils 0.5 % (0.0-1.0); %Lymphocytes 19.9 % (21.0-51.0); %Monocytes 7.8 % (0.0-10.0); Hematocrit 30.9 % (36.0-47.0); Mean Platelet Volume 6.7 fL (7.4-10.4); Red Blood Cell (RBC) Count 3.13 mill/uL (4.20-5.40); White Blood Cell (WBC) Count 13.9 thou/uL (4.8-10.8)
[2017-03-19 11:49] LABS: ALT (SGPT) 11 U/L (8-55); AST (SGOT) 15 U/L (5-34); Alkaline Phosphatase 64 U/L (40-150); Anion Gap 11 mmol/L (10-20); BUN (Urea Nitrogen) 5 mg/dL (7.0-18.7); Bilirubin, Total 0.3 mg/dL (0.2-1.2); Calc. Creatinine Clearance 129 mL/min (70-130); Calcium 9.8 mg/dL (7.8-10.44); Carbon Dioxide 30 mmol/L (22-29); Chloride 103 mmol/L (98-107); Estimated GFR-MDRD 69; Globulin 3.9 g/dL (2.4-3.5); Protein, Total 7.1 g/dL (6.0-8.3)
--- NOTE | 2017-03-19 12:32 | PDOC.PN ---
- Subjective Encounter Start Date: 03/19/17 Encounter Start Time: 08:45 Subjective: no nausea or abd pain -: feels better - Objective MAR Reviewed: Yes Vital Signs & Weight: Vital Signs (12 hours) Temp Pulse Resp BP Pulse Ox 03/19/17 08:24 97.6 F 85 16 98 03/19/17 08:00 97.6 F 85 16 151/88 H 98 03/19/17 04:44 97.4 F L 99 16 145/91 H 94 L Weight Admit Weight 226 lb Weight 230 lb Most Recent Monitor Data Heart Rate from ECG 109 NIBP 125/91 NIBP BP-Mean 106 Respiration from ECG 19 SpO2 93 Result Diagrams: 03/19/17 11:22 03/19/17 11:22 Phys Exam - Physical Examination HEENT: PERRLA, moist MMs Neck: no JVD, supple Respiratory: no wheezing, no rales Cardiovascular: RRR, no significant murmur Gastrointestinal: soft, non-tender, no distention, positive bowel sounds Musculoskeletal: no edema, pulses present Neurological: non-focal, moves all 4 limbs Psychiatric: A&O x 3 Dx/Plan (1) Sepsis Code(s): A41.9 - SEPSIS, UNSPECIFIED ORGANISM Status: Acute Qualifiers: Sepsis type: sepsis due to unspecified organism Qualified Code(s): A41.9 - Sepsis, unspecified organism (2) Bile peritonitis Code(s): K65.3 - CHOLEPERITONITIS Status: Acute Comment: s/p ercp with stent (3) Obesity (BMI 30-39.9) Code(s): E66.9 - OBESITY, UNSPECIFIED Status: Chronic (4) Hypothyroid Code(s): E03.9 - HYPOTHYROIDISM, UNSPECIFIED Status: Chronic Qualifiers: Hypothyroidism type: unspecified Qualified Code(s): E03.9 - Hypothyroidism , unspecified - Plan wbc is 13k this am -: oral levaq and flagyl for outpt use -: dc plan per advice -: oral iron on discharge -: she needs to f/u with GI for removal of biliary stent in 4 weeks * . Review of Systems - Medications/Allergies Allergies/Adverse Reactions: Allergies Allergy/AdvReac Type Severity Reaction Status Date / Time chicken derived Allergy Verified 03/07/17 07:35 Egg Derived Allergy Verified 03/05/17 04:49 Sulfa (Sulfonamide Allergy Verified 03/05/17 04:49 Antibiotics) turkey Allergy Verified 03/07/17 07:36 Medications: Current Medications Acetaminophen (Tylenol) 1,000 mg PO Q6H PRN PRN Reason: Pain 1-3 Last Admin: 03/11/17 02:40 Dose: 1,000 mg Hydrocodone Bitart/Acetaminophen ([place] 7.5/325) 1 tab PO Q4H PRN PRN Reason: Mild Pain (1-3) Last Admin: 03/19/17 12:09 Dose: 1 tab Albuterol/Ipratropium (Duoneb) 3 ml NEB [id number] PRN PRN Reason: SOB &/or Wheezing Aspirin (Ecotrin) 325 mg PO DAILY [facility] Last Admin: 03/19/17 08:40 Dose: 325 mg Calcium Carbonate (Tums) 500 mg PO Q6H PRN PRN Reason: .REFLUX Last Admin: 03/11/17 11:49 Dose: 500 mg Enoxaparin Sodium (Lovenox) 40 mg SC 0900 [facility] Last Admin: 03/19/17 08:48 Dose: 40 mg Fluconazole (Diflucan) 100 mg PO DAILY [facility] Last Admin: 03/19/17 08:40 Dose: 100 mg Furosemide (Lasix) 40 mg PO DAILY [facility] Last Admin: 03/19/17 08:40 Dose: 40 mg Levofloxacin (Levaquin) 750 mg PO 0600 [facility] Last Admin: 03/19/17 08:40 Dose: 750 mg Metronidazole (Flagyl) 500 mg PO TID [facility] Last Admin: 03/19/17 08:39 Dose: 500 mg Ondansetron HCl (Zofran) 4 mg IVP Q6H PRN PRN Reason: Nausea/Vomiting Pantoprazole Sodium (Protonix) 40 mg PO DAILY [facility] Last Admin: 03/19/17 08:40 Dose: 40 mg Potassium Chloride (Klor-Con 10) 10 meq PO BID-[facility] Last Admin: 03/19/17 08:39 Dose: 10 meq Saccharomyces Boulardii (Florastor) 250 mg PO DAILY [facility] Last Admin: 03/19/17 08:40 Dose: 250 mg Sodium Chloride (Flush - Normal Saline) 10 ml IVF Q12HR [facility] Last Admin: 03/19/17 08:49 Dose: Not Given Sodium Chloride (Flush - Normal Saline) 10 ml IVF PRN PRN PRN Reason: Saline Flush Last Admin: 03/17/17 22:47 Dose: 10 ml Sodium Chloride (Flush - Normal Saline) 10 ml IVF PRN PRN PRN Reason: Saline Flush Sumatriptan Succinate (Imitrex) 100 mg PO Q6H PRN PRN Reason: MIGRAINE HEADACHE Last Admin: 03/19/17 07:56 Dose: 100 mg Tramadol HCl (Ultram) 50 mg PO Q6H PRN PRN Reason: Moderate Pain (4-6) Tramadol HCl (Ultram) 100 mg PO Q6H PRN PRN Reason: Severe Pain (7-10) Last Admin: 03/19/17 08:40 Dose: 100 mg
[2017-03-20] MEDS: HYDROcodone/Acetaminophen 7.5/325 mg Tablet PO PRN (06:06)
[2017-03-20 07:30] LABS: #Basophils 0.1 thou/uL (0.0-0.2); #Eosinphils 0.3 thou/uL (0.0-0.7); #Lymphocytes 2.7 thou/uL (1.20-3.40); #Monocytes 0.9 thou/uL (0.11-0.59); #Neutrophils 6.8 thou/uL (1.40-6.50); %Basophils 0.7 % (0.0-1.0); %Eosinophils 2.7 % (0.0-10.0); %Lymphocytes 25.4 % (21.0-51.0); %Monocytes 8.1 % (0.0-10.0); Hematocrit 27.1 % (36.0-47.0); Mean Platelet Volume 6.6 fL (7.4-10.4); Red Blood Cell (RBC) Count 2.75 mill/uL (4.20-5.40); White Blood Cell (WBC) Count 10.8 thou/uL (4.8-10.8)
[2017-03-20 08:48] VITALS: BP 145/90; TEMP 98.3
[2017-03-20] MEDS: traMADol HCl 50 MG TAB PO PRN (08:56)
[2017-03-20] MEDS: Potassium Chloride 10 MEQ TAB PO SCH (08:57)
[2017-03-20] MEDS: metroNIDAZOLE 500 MG TAB PO SCH (08:57)
[2017-03-20] MEDS: Fluconazole 100 MG TAB PO SCH (08:58)
[2017-03-20] MEDS: Enoxaparin Sodium 40 MG/0.4 ML SYRINGE SC SCH (08:58)
[2017-03-20] MEDS: Aspirin 325 mg Enteric Coated Tablet PO SCH (08:58)
[2017-03-20] MEDS: Furosemide 40 MG TAB PO SCH (08:58)
[2017-03-20] MEDS: Saccharomyces boulardii 250 MG CAP PO SCH (08:58)
--- NOTE | 2017-03-20 12:12 | PRG ---
DATE OF SERVICE: 03/20/2017 SUBJECTIVE: She is feeling better, less pain, taking pain medication about 4 times daily. No respir atory symptoms, voiding without difficulty, no diarrhea. PHYSICAL EXAMINATION: VITAL SIGNS: Normal. She is afebrile. GENERAL: She is awake, alert, oriented. LUNGS: Clear. HEART: S1, S2, regular rate. ABDOMEN: Soft with mild tenderness in the lower quadrants. NEURO: No neurological abnormality. LABORATORY: White cell count down to 10.8, hemoglobin 9.3, platelets 769. Chemistry not remarkable except for albumin has improved to 3.2. ASSESSMENT AND DISCUSSION: Elective cholecystectomy with biliary leak and inflammatory changes in th e peritoneal area with some areas of concern for focal collections. Clear cut improvement with broad spectrum coverage now on oral Cipro and Flagyl with continuing improvement in the white cell count a nd platelet count. The patient can be discharged on 10 days of Cipro and Flagyl, and I have discussed with patient the p ossibility of recrudescence of inflammatory process and formation of abscesses that might need to be drained in the future, although I hope that this is not going to occur. Discussed potential symptoms and signs that might indicate that for her to contact us in that case or go to the emergency room.
--- NOTE | 2017-03-20 13:31 | PDOC.PN ---
- Subjective Encounter Start Date: 03/20/17 Encounter Start Time: 09:00 Subjective: no nausea/abd pain or sob -: feels better, tolerating oral diet, passing bm - Objective MAR Reviewed: Yes Vital Signs & Weight: Vital Signs (12 hours) Temp Pulse Resp BP Pulse Ox 03/20/17 08:00 98.3 F 89 20 145/90 H 95 03/20/17 04:26 98.2 F 93 20 138/86 95 Weight Admit Weight 226 lb Weight 230 lb Most Recent Monitor Data Heart Rate from ECG 109 NIBP 125/91 NIBP BP-Mean 106 Respiration from ECG 19 SpO2 93 I&O: 03/19/17 03/20/17 03/21/17 06:59 06:59 06:59 Intake Total 1160 Balance 1160 Result Diagrams: 03/20/17 06:49 03/19/17 11:22 Phys Exam - Physical Examination HEENT: PERRLA, moist MMs Neck: no JVD, supple Respiratory: no wheezing, no rales Cardiovascular: RRR, no significant murmur Gastrointestinal: soft, non-tender, no distention, positive bowel sounds Musculoskeletal: no edema, pulses present Neurological: non-focal, moves all 4 limbs Psychiatric: A&O x 3 Dx/Plan (1) Sepsis Code(s): A41.9 - SEPSIS, UNSPECIFIED ORGANISM Status: Acute Qualifiers: Sepsis type: sepsis due to unspecified organism Qualified Code(s): A41.9 - Sepsis, unspecified organism (2) Bile peritonitis Code(s): K65.3 - CHOLEPERITONITIS Status: Acute Comment: s/p ercp with stent (3) Obesity (BMI 30-39.9) Code(s): E66.9 - OBESITY, UNSPECIFIED Status: Chronic (4) Hypothyroid Code(s): E03.9 - HYPOTHYROIDISM, UNSPECIFIED Status: Chronic Qualifiers: Hypothyroidism type: unspecified Qualified Code(s): E03.9 - Hypothyroidism , unspecified - Plan hemostable -: wbc is normal this am -: dc pt on levaq and flagyl -: to f/u with GI for stent removal in 4 weeks -: f/u with in 1 week. * .
--- NOTE | 2017-03-20 17:19 | DIS ---
DATE OF ADMISSION: 03/05/2017 DATE OF DISCHARGE: 03/20/2017 DISCHARGE DISPOSITION: To home. PRIMARY DISCHARGE DIAGNOSES: 1. Sepsis. 2. Bile peritonitis with recent cholecystectomy, status post endoscopic retrograde cholangiopancreat ography with stent. SECONDARY DISCHARGE DIAGNOSES: Obesity, hypothyroidism. PROCEDURES DONE DURING HOSPITALIZATION: Echo with 2D Doppler done showed an EF of 60%-65%, moderatel y enlarged RV cavity, grade I diastolic dysfunction was seen. HIDA scan done on the ; it was pos itive for biliary leak with activity accumulating in the region of the gallbladder fossa. The patien t had ERCP done by Dr. Morris on 03/05/2017. She has had sphincterotomy and a 9 cm 10-Mosoth[place] stent was placed without difficulty. On 03/08/2017, the patient had a CT angio chest done, which showed no ev idence of PE. CT of the abdomen with IV contrast done on 03/08/2017 showed a small amount of air and fluid in the region of the gallbladder fossa due to postop status, small amount of subcapsular fluid along the liver margin. Left upper extremity venous Doppler done showed superficial thrombus involv ing basilic and cephalic veins. Had a repeat abdominopelvic CAT scan done on 03/13/2017, showed prom inent volume of free fluid of the lower abdomen and pelvis, stable subcapsular fluid density collecti on along the posterior confines of the right hepatic lobe. There was stable in size organizing fluid collection along the greater curvature of the stomach. A repeat HIDA scan done on 03/14/2017 showed no active biliary leak in the gallbladder fossa. Influenza A and B antigens were negative. Stool f or C. difficile was negative. Discharge white count of 10, had a white count of 23,000 on 03/12/2017 . Discharge H and H 9 and 27 with platelet count of 769. Discharge liver enzymes are within normal limits. Discharge albumin is 3.2. Discharge total bilirubin is 0.3. Discharge BUN and creatinine 5 and 0.8. Initial AST was 58. ALT was 103 and alkaline phosphatase of 76 with total bilirubin of 2. 0 on the day of admission. DISCHARGE MEDICATIONS: Ultram p.r.n. for pain, Cipro 500 mg p.o. twice daily for 10 days, Flagyl 500 mg p.o. 3 times daily for 10 days, ferrous sulfate 325 mg p.o. twice daily, amitriptyline 10 mg p.o. daily, hydrochlorothiazide 12.5 mg p.o. daily, metformin 100 mg twice daily, Protonix 40 mg daily, K -Dur 20 mEq p.o. daily, prazosin 1 mg at bedtime, Florastor 250 mg daily for 10 days, sertraline 100 mg daily, simvastatin 20 mg at bedtime, Imitrex p.r.n. for migraine, Cunningham Thyroid 60 mg daily, topi ramate 50 mg twice daily. ALLERGIES: Allergic to CHICKEN, EGG, SULFA, AND TURKEY. INPATIENT CONSULTS: Dr. Proctor for Infectious Disease, Dr. Sanon for Pulmonary Critical Care, Dr. Tamir house for Gastroenterology, Dr. Brown for General Surgery. BRIEF COURSE DURING HOSPITALIZATION: The patient initially got admitted on the with complaints of shortness of breath. She has had recent laparoscopic cholecystectomy done at [place]. She also had abdominal pain in the lower quadrants on arrival and intractable vomiting. On arrival, she was hypoxic and was placed on BiPAP. The patient was admitted to [facility] initially. She was placed on broa d-spectrum antibiotics for possible sepsis. HIDA scan done showed biliary leak in the gallbladder fo ssa. GI consultation with Dr. Morris was requested. She has had ERCP with sphincterotomy and placemen t of a stent. She also had consultation with Dr. Brown for General Surgery. There was also suspicio n of pneumonia on arrival, for which she was placed on broad-spectrum antibiotics. The patient has h ad waxing and waning symptoms of abdominal pain, nausea, and vomiting. She has had multiple imaging studies as mentioned above. A repeat HIDA scan done on 03/14/2017 showed no biliary leak. She has b een on solid diet from last 5 days and has been tolerating it well. She is ambulating in the hallway . Her nausea, vomiting, and abdominal pain have completely resolved. Her white count is back to nor mal. She has been placed on Cipro and Flagyl, which she needs to continue for 10 days. She needs to follow up with Dr. Proctor in 1 week. The patient does not have a primary care physician and has been counseled to find one in the local area. She has moved from [facility]. She needs to follow up with her surgeons in [place] in a week. Please see a [id number] [facility].
== END 2017-03-20 15:46 | disposition home or self-care (01) | DRG 393 ==
LOC: ERS 03:11 → CCU 05:25 → SURG B 03-07 11:31
PROVIDERS: ADMIT Internal Medicine; ATTEND Internal Medicine
PROC: 5A1945Z Respiratory Ventilation, 24-96 Consecutive Hours (ICD-10-PCS; 2017-03-05)
PROC: 5A09357 Assistance with Respiratory Ventilation, Less than 24 Consecutive Hours, Continuous Positive Airway Pressure (ICD-10-PCS; 2017-03-05)
PROC: 0F7 Hepatobiliary System and Pancreas, Dilation (ICD-10-PCS; 2017-03-06)
PROC: 0FJB8ZZ Inspection of Hepatobiliary Duct, Via Natural or Artificial Opening Endoscopic (ICD-10-PCS; 2017-03-06)
PROC: BF10YZZ Fluoroscopy of Bile Ducts using Other Contrast (ICD-10-PCS; 2017-03-06)
PROC: 0BP1XDZ Removal of Intraluminal Device from Trachea, External Approach (ICD-10-PCS; 2017-03-06)
PROC: 06HM33Z Insertion of Infusion Device into Right Femoral Vein, Percutaneous Approach (ICD-10-PCS; principal; 2017-03-08)
DX: K91.89 Other postprocedural complications and disorders of digestive system (principal); A41.9 Sepsis, unspecified organism; J96.01 Acute respiratory failure with hypoxia; R65.20 Severe sepsis without septic shock; J15.4 Pneumonia due to other streptococci; K65.3 Choleperitonitis; K83.3 Fistula of bile duct; K56.609 Unspecified intestinal obstruction, unspecified as to partial versus complete obstruction; E87.2 Acidosis; J98.11 Atelectasis; K56.7 Ileus, unspecified; I82.612 Acute embolism and thrombosis of superficial veins of left upper extremity; E03.9 Hypothyroidism, unspecified; I87.2 Venous insufficiency (chronic) (peripheral); J98.4 Other disorders of lung; B37.9 Candidiasis, unspecified; E83.42 Hypomagnesemia; D72.829 Elevated white blood cell count, unspecified; F43.10 Post-traumatic stress disorder, unspecified; E87.6 Hypokalemia; E66.9 Obesity, unspecified; R94.5 Abnormal results of liver function studies; R51 Headache; E83.39 Other disorders of phosphorus metabolism; Z90.49 Acquired absence of other specified parts of digestive tract; Z68.34 Body mass index [BMI] 34.0-34.9, adult; Z88.2 Allergy status to sulfonamides; Z91.012 Allergy to eggs; Z91.018 Allergy to other foods
CPT/HCPCS: 36415; 71010; 71275; 74000; 74020; 74160; 74177; 74250; 74330; 78226; 80048; 80053; 80069; 80076; 80202; 81003; 81015; 82553; 82805; 83605; 83735; 83880; 84100; 84484; 85014; 85018; 85025; 85049; 85379; 85520; 85610; 85730; 86850; 86900; 86901; 87324; 87449; 87899; 93005; 93306; 94002; 94003; 94660; 96365; A4216; A9537; C9113; G8978-GP-CJ; G8978-GP-CK; G8979-GP-CH; G8979-GP-CI; J0131; J0692; J0744; J1610; J1642; J1644; J1650; J1940; J2001; J2060; J2250; J2270; J2405; J2543; J2550; J2704; J2997; J3010; J3370; J3475; J3480; J7050; Q9961